=== PATIENT | male | born 1940 | race Caucasian/White ===

== ENCOUNTER 2021-07-09 12:59 | Outpatient (CLI) | payer MEDICARE, SELFPAY ==
--- NOTE | ~2021-07-09 | CT_ITS ---
EXAMINATION: CT abdomen pelvis w con DATE: 07/09/2021 13:42 INDICATION: Unspecified abdominal pain. TECHNIQUE: Computed tomography (CT) of the abdomen and pelvis was performed with 100 mL Omnipaque-350 intravenous contrast. Automated exposure control and iterative reconstruction technique were employe d. The dose-length product was 542.22 mGy-cm. COMPARISON: 09/02/2013 FINDINGS: Lung bases are clear. Moderate-sized sliding-type hiatal hernia. Heart size is normal. No pericardial effusion. Postoperative change of prior median sternotomy and coronary artery bypass grafting. Dual lead pacemaker/AICD seen with leads leading tips at the right atrial appendage and at the apex of the right ventricle. Cholecystectomy clips the gallbladder fossa. Liver, spleen, pancreas and bilateral adrenal glands are normal. A few bilateral subcentimeter low-attenuation renal cysts. There is mild w all thickening and mild surrounding inflammatory stranding at the sigmoid colon where there is a larg e collection of stool measuring up to 7.5 cm in maximal diameter consistent with likely constipation and associated stercoral colitis. There are few scattered colonic diverticula predominantly in the di stal sigmoid colon without focal associated inflammatory stranding to suggest diverticulitis. Small b owel and appendix are normal. No small bowel dilation to suggest obstruction. Marked prostatomegaly m easuring 7.9 x 6.1 cm in maximal diameter. Bladder is normal. No free intraperitoneal gas or fluid. N o pathologically enlarged abdominal or pelvic lymphadenopathy. The inferior aspect of the scrotum is not visualized however there appears to be an absent right spermatic cord suggesting either prior orc hiectomy or nondistended and atrophic right testis which is not identified. Mild thoracolumbar dextro scoliosis with moderate spondylosis. Mild right and mild to moderate left hip osteoarthritis with sub articular cystic change at the superolateral femoral head neck junctions. IMPRESSION: 1. Likely stercoral colitis with mild wall thickening and mild inflammatory stranding at the sigmoid colon surrounding a 7.5 cm diameter ball of stool correlate clinically for constipation. 2. Moderate-sized sliding-type hiatal hernia. 3. Marked prostatomegaly measuring 7.9 x 6.1 cm. 4. Absent right spermatic cord suggesting either prior right orchiectomy or undescended right testis which is not identified. Correlate with clinical history. Reviewed, dictated and finalized at location A. N INTELLIGENCE IMPRESSION: 1. Likely stercoral colitis with mild wall thickening and mild inflammatory str anding at the sigmoid colon surrounding a 7.5 cm diameter ball of stool correla te clinically for constipation. 2. Moderate-sized sliding-type hiatal hernia. 3. Marked prostatomegaly measuring 7.9 x 6.1 cm. 4. Absent right spermatic cord suggesting either prior right orchiectomy or und escended right testis which is not identified. Correlate with clinical history.
[2021-07-09 13:31] LABS: Estimated Glomerular Filt Rate 53
== END 2021-07-09 13:00 | disposition home or self-care (01) ==
LOC: ANHIMG 13:06
PROVIDERS: PCP Family Medicine; Visit Provider Physician Assistant
DX: R10.9 Unspecified abdominal pain (principal); K44.9 Diaphragmatic hernia without obstruction or gangrene
CPT/HCPCS: 74177; Q9967

== ENCOUNTER 2021-07-09 15:00 | Emergency (ER) | payer MEDICARE, SELFPAY ==
[2021-07-09 15:04] VITALS: BP 150/76; PULSE 63; RESP 18; TEMP 36.1; O2SAT 100
[2021-07-09 17:14] VITALS: BP 132/63; PULSE 60; RESP 18; O2SAT 100
--- NOTE | 2021-07-09 18:29 | ED.GENADULT ---
HPI - General Adult General Chief complaint: Abdominal Pain Stated complaint: colon impaction Time Seen by Provider: 07/09/21 16:53 Source: patient and RN notes reviewed Mode of arrival: ambulatory Limitations: no limitations History of Present Illness HPI narrative: 80-year-old male with history of constipation presents emerged department for evaluation of acute constipation that started approximately 2 days ago. Patient did have follow-up with his primary care physician and did have a CT scan. Related Data Home Medications Medication Instructions Recorded Confirmed aspirin 81 mg tablet,delayed 81 mg PO DAILY 05/03/19 07/12/21 release meclizine 25 mg tablet 25 mg PO .PRN tablet 05/03/19 07/12/21 njzynair-ojz-ssglv acid 0.4 1 tablet PO DAILY 05/03/19 07/12/21 mg-lycopene 300 mcg-lutein 250 mcg tablet sildenafil 100 mg tablet 100 mg PO DAILY PRN 05/03/19 07/12/21 Allergies Allergy/AdvReac Type Severity Reaction Status Date / Time No Known Allergies Allergy Mild Verified 07/12/21 09:04 Review of Systems Review of Systems: CONSTITUTIONAL: Denies fever, chills, or sweats. EYES: Denies visual changes, redness, or discharge. ENT: Denies rhinorrhea, congestion, sore throat, or otalgia. CARDIOVASCULAR: Denies chest pain, palpitations, or edema. RESPIRATORY: Denies cough or dyspnea. GASTROINTESTINAL: Does report some constipation. Patient has been passing some balls of stool but no significant bowel movement in approximately 2 days. Patient states he does have intermittent lower abdominal cramping. GENITOURINARY: Denies dysuria or hematuria. SKIN: Denies rash or itching. All systems reviewed & are unremarkable except as noted in HPI and below [facility] Past Medical History Medical History (Updated 07/12/21 @ 14:30 by Deo Yu MD) Cardiac pacemaker (~2009) Presence of combination internal cardiac defibrillator (ICD) and pacemaker (~10/2017) Surgical History Surgical History History of cholecystectomy (~2002) History of thyroidectomy (~1975) History of tonsillectomy (~194) Hx of CABG (~1999) Family History Family History Father Family history of cardiovascular disease Acute myocardial infarction Cerebrovascular accident Malignant neoplasm of prostate Mother Cerebrovascular accident, Onset Age: 87 Family history of Alzheimer's disease, Onset Age: 87 Acute myocardial infarction Family history of malignant neoplasm of breast Family history of dementia Social History Social History (Reviewed 07/12/21 @ 09:05 by Amalia Santana [facility]) Alcohol intake: current Exam Narrative: APPEARANCE: Well appearing, no pain, no distress, well-nourished. HEAD: normocephalic, atraumatic. EYES: PERRLA/EOMI, conjunctivae clear. RESPIRATORY: Airway patent, respirations nonlabored. Clear to auscultation bilaterally, no rales, rhonchi, wheezing. CARDIOVASCULAR: Regular rate and rhythm without murmurs rubs or gallops. ABDOMINAL: Soft, nontender, nondistended, normal bowel sounds. No palpable stool ball on rectal exam MUSCULOSKELETAL: Moves all extremities. Strength/ROM intact, No edema, No calf tenderness. NEURO: Alert. Cranial nerves II through XII intact. Good gait. Good coordination SKIN: Warm, dry. Normal Color Course Course Emergency Course: Patient tolerated the digital rectal exam. Unfortunately there was no stool within reach to help for digital disimpaction. Patient was able to hold the soapsuds enema x2 but has not yet had any significant results. I had a lengthy discussion with the patient regarding admission versus going home to try additional methods. Patient strongly prefers to go home and attempt MiraLAX. Patient was advised to try multiple doses of MiraLAX along with increased water. Patient was also educated on reasons to return to the emergency room. All questions concerns were add
== END 2021-07-09 20:15 | disposition home or self-care (01) ==
PROVIDERS: Emergency Provider Emergency Medicine; PCP Family Medicine
DX: K59.00 Constipation, unspecified (principal); I25.10 Atherosclerotic heart disease of native coronary artery without angina pectoris; Z79.82 Long term (current) use of aspirin; Z95.810 Presence of automatic (implantable) cardiac defibrillator; E89.0 Postprocedural hypothyroidism; Z95.1 Presence of aortocoronary bypass graft; K44.9 Diaphragmatic hernia without obstruction or gangrene; N40.0 Benign prostatic hyperplasia without lower urinary tract symptoms
CPT/HCPCS: 74177; 99282; Q9967

== ENCOUNTER 2021-07-13 10:19 | Inpatient (IN) | payer MEDICARE, SELFPAY ==
--- NOTE | ~2021-07-13 | XR_ITS ---
XR abdomen/kub 1V 07/16/2021 08:15 Indication: Constipation. Fecal impaction. Procedure: KUB Comparison: CT abdomen dated 07/13/2021 Findings: Gas pattern nonobstructive. There is reduced fecal retention in the colon compared with CT allowing for differences of technique. Status post cholecystectomy. There is dextroscoliosis at the t horacolumbar junction. No acute osseous abnormality. No abnormal calcifications. Impression: 1: Nonobstructive bowel gas pattern. Reviewed, dictated and finalized at location D. ENT RELATIONS COORDINATOR Impression: 1: Nonobstructive bowel gas pattern.
--- NOTE | ~2021-07-13 | CT_ITS ---
EXAMINATION: CT abdomen pelvis w con DATE: 07/13/2021 12:23 INDICATION: Low abdominal pain. Fecal impaction. TECHNIQUE: Computed tomography (CT) of the abdomen and pelvis was performed with 100 mL Omnipaque 350 intravenous contrast. Automated exposure control and iterative reconstruction technique were employe d. The dose-length product was 450.43 mGy-cm. COMPARISON: CT abdomen and pelvis 07/09/2021 FINDINGS: The visualized portions of the lung bases demonstrate mild atelectasis. No pleural effusion . The heart size is normal. There are coronary artery calcifications. There are changes of coronary a rtery bypass grafting. No pericardial effusion. There are pacer wires in right atrium and right ventr icle. There is a moderate-sized sliding hiatal hernia. The liver demonstrates focal steatosis adjacen t to ligamentum teres. The spleen, pancreas, adrenal glands are normal. There are cysts in the kidney s measuring up to 7 mm on the right. The prostate is severely enlarged. The sigmoid colon is focally dilated to 7.8 cm and stool-filled with wall thickening and surrounding fat stranding. The appendix i s normal. There are no pathologically enlarged lymph nodes. There is no free intraperitoneal fluid. R ight spermatic cord is absent, which may be secondary to surgical change or an undescended testis, wh ich is not identified. There is severe lumbar spondylosis. Thoracolumbar dextroscoliosis is noted. Th ere is a nonaggressive lytic lesion with sclerotic margin in right ilium, likely benign. IMPRESSION: 1. Persistent stool impaction of the sigmoid colon with stable focal dilatation and worsened inflamma tion. 2. Moderate-sized sliding hiatal hernia. Reviewed, dictated and finalized at location A. RUCTIONAL SERVICES SPECIALIST IMPRESSION: 1. Persistent stool impaction of the sigmoid colon with stable focal dilatation and worsened inflammation. 2. Moderate-sized sliding hiatal hernia.
[2021-07-13 10:28] VITALS: BP 120/72; PULSE 101; RESP 14; TEMP 35.9; O2SAT 99
[2021-07-13 11:17] LABS: Alanine Aminotransferase 30 U/L (4-50); Albumin Level 4.9 g/dL (3.5-5.1); Alkaline Phosphatase 180 U/L (38-126); Anion Gap 13 mmol/L (8-16); Aspartate Amino Transferase 47 U/L (17-59); Bilirubin,Total 1.3 mg/dL (0.2-1.3); Blood Urea Nitrogen 38 mg/dL (9-20); Calcium 10.5 mg/dL (8.4-10.2); Carbon Dioxide 29 mmol/L (22-30); Chloride 95 mmol/L (98-107); Estimated CRCL calculation 33 ml/min; Estimated Glomerular Filt Rate 42; Glucose 126 mg/dL (65-110); Potassium 4.3 mmol/L (3.4-5.0); Sodium 137 mmol/L (137-145)
[2021-07-13 11:18] LABS: Basophils Absolute Auto 0.1 K/mm3 (0.0-0.1); Basophils Percent Auto 0.4 % (0.2-1.2); Eosinophils Percent Auto 0.1 % (0-4.4); Hematocrit 49.7 % (42.0-52.0); Hemoglobin 17.1 g/dL (14.0-18.0); Immature Granulocyte Absolute 0.08 K/mm3 (0.00-0.031); Immature Granulocyte Percent A 0.5 % (0-0.5); Lymphocytes Absolute Auto 1.64 K/mm3 (0.9-3.2); Mean Corpuscular HGB Conc 34.4 g/dl (32-36); Mean Corpuscular Hemoglobin 30.9 pg (26-34); Mean Corpuscular Volume 89.9 fl (80-100); Mean Platelet Volume 10.5 fl (7.4-10.4); Monocytes Absolute Auto 1.3 K/mm3 (0.1-0.6); Monocytes Percent Auto 7.6 % (2.6-8.5); Neutrophils Absolute Auto 13.3 K/mm3 (1.3-6.7); Neutrophils Percent Auto 81.4 % (45.5-73.1); Platelet Count Result 279 k/mm3 (150-375); Red Blood Count 5.53 M/mm3 (4.6-6.20); Red Cell Distribution Width 12.8 % (11.5-14.5); White Blood Count 16.4 K/mm3 (4.5-10.0)
--- NOTE | 2021-07-13 11:22 | ED.ABDPAIN ---
HPI - Abdominal Pain General Chief Complaint: Abdominal Pain Stated Complaint: impaction Time Seen by Provider: 07/13/21 10:51 Source: patient, RN notes reviewed and old records reviewed Limitations: no limitations History of Present Illness HPI narrative: 80-year-old male presenting to the emergency department for evaluation of fecal impaction and constipation. Patient began developing some symptoms of constipation approximately 1 week ago on Monday. Patient denies any change in home medications at that time. Patient did have follow-up with his primary care physician and was initially started on MiraLAX. Patient symptoms persisted and he had follow-up in and a CT was ordered which showed some fecal impaction. Patient was then instructed present to the emergency department the first time on the . At that time patient was willing to attempt further conservative measures such as clear liquid diet and MiraLAX to help initiate a bowel movement. Patient had no fecal stool ball on digital rectal exam. Patient had no significant results at home from the miralax after DC from the ED and once again did have follow-up with his primary care physician, case was discussed with Dr. Cantrell. Patient was instructed to continue a mineral oil Fleet, MiraLAX and milk of magnesia. Patient attempted these all the yesterday and then tried a suppository last night. None of these have induced bowel movements. Patient does complain of lower abdominal cramping. Patient does have some associated nausea. Patient does state he has lost about 10 pounds of weight in the last 10 days. Patient has not had anything to eat but a few sips of water earlier this morning. Related Data Home Medications Medication Instructions Recorded Confirmed aspirin 81 mg tablet,delayed 81 mg PO DAILY 05/03/19 07/12/21 release meclizine 25 mg tablet 25 mg PO .PRN tablet 05/03/19 07/12/21 dojnhpwo-ngw-hgenf acid 0.4 1 tablet PO DAILY 05/03/19 07/12/21 mg-lycopene 300 mcg-lutein 250 mcg tablet sildenafil 100 mg tablet 100 mg PO DAILY PRN 05/03/19 07/12/21 Allergies Allergy/AdvReac Type Severity Reaction Status Date / Time No Known Allergies Allergy Mild Verified 07/12/21 09:04 Review of Systems Review of Systems: CONSTITUTIONAL: Denies fever, chills, or sweats. EYES: Denies visual changes, redness, or discharge. ENT: Denies rhinorrhea, congestion, sore throat, or otalgia. CARDIOVASCULAR: Denies chest pain, palpitations, or edema. RESPIRATORY: Denies cough or dyspnea. GASTROINTESTINAL: Lower abdominal cramping with associated nausea, GENITOURINARY: Denies dysuria or hematuria. SKIN: Denies rash or itching. MUSCULOSKELETAL: Denies back pain, joint pain, or myalgia. NEUROLOGIC: Denies headache, numbness, or weakness. PSYCHIATRIC: Denies anxiety or depression. [facility] Past Medical History Medical History (Updated 07/13/21 @ 13:01 by Deo Yu MD) Cardiac pacemaker (~2009) Presence of combination internal cardiac defibrillator (ICD) and pacemaker (~10/2017) Surgical History Surgical History History of cholecystectomy (~2002) History of thyroidectomy (~1975) History of tonsillectomy (~194) Hx of CABG (~1999) Family History Family History Father Family history of cardiovascular disease Acute myocardial infarction Cerebrovascular accident Malignant neoplasm of prostate Mother Cerebrovascular accident, Onset Age: 87 Family history of Alzheimer's disease, Onset Age: 87 Acute myocardial infarction Family history of malignant neoplasm of breast Family history of dementia Social History Social History Smoking packs per day: 0.5 Smoking cigarettes per day: 10.0 Years smoked: 4 Smoking pack-years: 2.00 Smoking status: Former smoker Alcohol intake: current Spiritual c
[2021-07-13] MEDS: fentaNYL CITRATE INJ (*CRX) 100 MCG/2 ML VIAL 50 MCG IV PUSH (12:07)
--- NOTE | 2021-07-13 12:13 | PC.NURSE ---
PATIENT MEDICATED AND CT SCAN AWARE
--- NOTE | 2021-07-13 13:24 | PC.NURSE ---
Dr here to assess patient
[2021-07-13 13:25] LABS: SARS-CoV-2 RNA PCR Negative
--- NOTE | 2021-07-13 14:14 | WPDGICN ---
Assessment and Plan Assessment and plan (1) Constipation: Qualifiers: Constipation type: unspecified constipation type Qualified Code(s): K59.00 - Constipation, unspecified Code(s): K59.00 - Constipation, unspecified Status: Acute Assessment and Plan: Patient with constipation with now with fecal impaction. Plan is for liquid diet. We will try some soapsuds enemas and perhaps mineral oil retention enemas intermittently to see if we can break up this fecal impaction. Long-term use laxatives will be of benefit. (2) Fecal impaction of colon: Code(s): K56.41 - Fecal impaction Status: Acute Assessment and Plan: CT scan suggest fecal impaction both in the ER several days ago and again today. We will try intermittent soapsuds enemas and perhaps mineral oil enemas along with to collect suppositories hopefully this will help reduce some results. (3) Stercoral colitis: Code(s): K52.89 - Other specified noninfective gastroenteritis and colitis Status: Acute GI Consult Note Consult date/time: 07/13/21 14:14 HPI: Reinaldo Joseph is a 80 year old male I have been asked to consult because of fecal impaction. Patient reports began to have difficulties with bowel movement a week ago. He states at this point he has not had a bowel movement for 1 week. He presented the ER several days ago. CT scan revealed fecal impaction. Patient has received several enemas and is started on MiraLax with no change in symptoms. Apparently tried mineral oil enema recently with no change in symptoms. He denies any prior episodes of fecal obtained packed [place] or obstruction. He denies any bleeding. He states he has had minimal intake aside from liquids and soups over the last several days. His family history is noncontributory. Patient's past history is significant for cardiac pacemaker and defibrillator. He has previously had a cholecystectomy. Review of Systems Review of Systems: All systems reviewed & are unremarkable except as noted in HPI and below [facility] Past Medical History Medical History (Updated 07/13/21 @ 13:01 by Deo Yu MD) Cardiac pacemaker (~2009) Presence of combination internal cardiac defibrillator (ICD) and pacemaker (~10/2017) Surgical History Surgical History History of cholecystectomy (~2002) History of thyroidectomy (~1975) History of tonsillectomy (~194) Hx of CABG (~1999) Family History Family History Father Family history of cardiovascular disease Acute myocardial infarction Cerebrovascular accident Malignant neoplasm of prostate Mother Cerebrovascular accident, Onset Age: 87 Family history of Alzheimer's disease, Onset Age: 87 Acute myocardial infarction Family history of malignant neoplasm of breast Family history of dementia Social History Social History Alcohol intake: current Meds Home Medications and Allergies Home Medications Medication Instructions Recorded Confirmed Type aspirin 81 mg tablet,delayed 81 mg PO DAILY 05/03/19 07/12/21 History release meclizine 25 mg tablet 25 mg PO .PRN tablet 05/03/19 07/12/21 History bodfkabv-rdh-aoozk acid 0.4 1 tablet PO DAILY 05/03/19 07/12/21 History mg-lycopene 300 mcg-lutein 250 mcg tablet sildenafil 100 mg tablet 100 mg PO DAILY PRN 05/03/19 07/12/21 History atorvastatin 40 mg tablet See Rx Instructions .ROUTE 11/27/20 07/12/21 Rx .COMPLEX #90 tablet omeprazole 20 mg capsule,delayed See Rx Instructions .ROUTE 12/01/20 07/12/21 Rx release .COMPLEX #90 cap hydrochlorothiazide 25 mg tablet See Rx Instructions .ROUTE 12/11/20 07/12/21 Rx .COMPLEX #90 tablet metoprolol succinate 50 mg See Rx Instructions .ROUTE 01/11/21 07/12/21 Rx tablet,extended release 24 hr .COMPLEX #90 tablet adina
[2021-07-13] MEDS: HYDROmorphone HCL INJ (*CRX) 1 MG/ML SYR 0.5 MG IV PUSH (14:58)
[2021-07-13] MEDS: BISACODYL 5 MG TABLET EC PO (15:00)
[2021-07-13] MEDS: SODIUM CHLORIDE 0.9% IV 1,000 ML 150 ML IV CONT (15:00)
[2021-07-13 17:59] VITALS: BP 121/78; RESP 16; O2SAT 96
--- NOTE | 2021-07-13 18:00 | PM.IMHP ---
H&P: HPI History of Present Illness Date/Time: 07/13/21 18:00 Chief Complaint: Abdominal pain and constipation. Narrative: This is a pleasant 80-year-old male with history of diverticulitis, gastroesophageal reflux disease, coronary artery disease, paroxysmal atrial fibrillation, hypertension, sleep apnea, and benign prostatic hyperplasia presented to the emergency department from home for evaluation of abdominal pain and constipation. Nearly 1 week ago he developed abdominal bloating and cramping with the inability to have a bowel movement. Maybe 2 weeks prior to that he noticed that his stools were much smaller and harder than usual though he did not paid much attention. He has tried a multitude of things to have a bowel movement including MiraLax, milk of magnesia, mineral oil, Dulcolax suppositories, and Fleet enema as without much success. In fact he was seen emergency department on 07/09/[address] of the abdomen pelvis showed findings of stercoral colitis surrounding a 7.5 cm diameter ball of stool at the sigmoid colon. He was unable to be manually disimpacted as the stool could not be reached. He was given an enema at that time and only produced a small amount of brown liquid stool. Unfortunately he continues to have significant bloating and pain without a bowel movement. It is now to the point where he does not want to eat or drink anything as he thinks is going to make things worse. He is being admitted for further care. Dr. Cantrell has seen him and recommends trying soapsuds enemas and mineral oil retention enema as to see if we can break up the fecal impaction. Patient reports a similar episode though not nearly as severe several years ago when he had diverticulitis. It should also be mentioned that he had severe prostatomegaly on imaging today. He states he has been urinating as normal. He has not had pelvic pain, fever, chills, or sweats. Review of Systems Review of Systems: Twelve systems were reviewed. No recent cold or flu symptoms. He denies sick contacts. He has had some nausea which he believes is due to the bloating. Cramping does improve somewhat when passing gas or belching though that does not occur very frequently. No chest pain or shortness of breath. No cough. No dysuria or hematuria. Except as documented, all other systems were reviewed and are negative. PMFSH Past Medical History Medical History (Updated 07/13/21 @ 23:11 by Beryl Morrison PA-C) Benign prostatic hyperplasia Coronary artery disease Diverticulitis Essential (primary) hypertension Gastroesophageal reflux disease Mixed hyperlipidemia Obstructive sleep apnea Paroxysmal atrial fibrillation Surgical History Surgical History (Updated 07/13/21 @ 23:08 by Beryl Morrison PA-C) Cardiac pacemaker (2009) History of cholecystectomy (2002) History of coronary artery bypass graft (1999) History of thyroidectomy (1975) History of tonsillectomy (1947) Presence of combination internal cardiac defibrillator (ICD) and pacemaker (10/2017) Family History Family History Father Family history of cardiovascular disease Acute myocardial infarction Cerebrovascular accident Malignant neoplasm of prostate Mother Cerebrovascular accident, Onset Age: 87 Family history of Alzheimer's disease, Onset Age: 87 Acute myocardial infarction Family history of malignant neoplasm of breast Family history of dementia Social History Social History (Updated 07/13/21 @ 23:09 by Beryl Morrison PA-C) Social History: Surrogate decision maker: Nga Joseph, spouse. Code status: Full code. Smoking packs per day: 0.5 Smoking cigarettes per day: 10.0 Years smoked: 4 Smoking pack-years: 2.00 Smoking status: Former smoker Alcohol intake: current Alcohol use details: Consumes alcohol socially and in moderation. Substance use: never Additional living arrangements comments: Lives in [facility]
--- NOTE | 2021-07-13 18:39 | ADMGEN ---
This patient, Reinaldo Joseph, was admitted to Medical Room 251-01. Patient/family oriented to hospital policies and general routines including ID bracelet, bed and alarms, visiting hours, pain management, procedures, bathroom and other care routines, personal items, smoking policy, room service/diet, and visiting hours. Information on how to activate the Rapid Response Team has been discussed. Patient/Family are encouraged to report perceived risks to care and to ask questions if they do not understand what they are told or what they should do.
[2021-07-13 18:44] VITALS: BP 135/80; PULSE 88; RESP 16; TEMP 36.4; O2SAT 100; BMI 24.9
[2021-07-13 19:31] VITALS: BP 107/65; PULSE 79; RESP 16; TEMP 36.9; O2SAT 99
[2021-07-13 20:00] VITALS: PULSE 79; RESP 16; O2SAT 99
[2021-07-13 23:14] VITALS: PULSE 79; O2SAT 93
[2021-07-14] MEDS: SODIUM CHLORIDE 0.9% IV 1,000 ML 75 ML IV CONT (00:09)
[2021-07-14 04:27] VITALS: BP 132/71; PULSE 81; RESP 17; TEMP 37.2; O2SAT 97
[2021-07-14 05:57] LABS: Hematocrit 43.4 % (42.0-52.0); Hemoglobin 14.5 g/dL (14.0-18.0); Mean Corpuscular HGB Conc 33.4 g/dl (32-36); Mean Corpuscular Hemoglobin 30.4 pg (26-34); Platelet Count Result 223 k/mm3 (150-375); Red Blood Count 4.77 M/mm3 (4.6-6.20); Red Cell Distribution Width 12.8 % (11.5-14.5); White Blood Count 10.2 K/mm3 (4.5-10.0)
[2021-07-14 06:34] LABS: Anion Gap 10 mmol/L (8-16); Blood Urea Nitrogen 33 mg/dL (9-20); CRP 18.2 mg/dL (<1.0); Calcium 9.4 mg/dL (8.4-10.2); Carbon Dioxide 28 mmol/L (22-30); Chloride 100 mmol/L (98-107); Estimated CRCL calculation 40 ml/min; Estimated Glomerular Filt Rate 53; Glucose 93 mg/dL (65-110); Magnesium 2.5 mg/dL (1.6-2.3); Potassium 4.1 mmol/L (3.4-5.0); Sodium 138 mmol/L (137-145)
[2021-07-14] MEDS: HYDROmorphone HCL INJ (*CRX) 1 MG/ML SYR 0.5 MG IV PUSH (06:44)
--- NOTE | 2021-07-14 07:47 | WPDGIPROGNO ---
Progress Note: A&P Assessment and Plan (1) Constipation: Qualifiers: Constipation type: unspecified constipation type Qualified Code(s): K59.00 - Constipation, unspecified Code(s): K59.00 - Constipation, unspecified Status: Acute Assessment and Plan: Patient with constipation now leading to fecal impaction. After discharge a routine bowel regime would be prudent. (2) Fecal impaction of colon: Code(s): K56.41 - Fecal impaction Status: Acute Assessment and Plan: Patient with large fecal impaction. Plan to continue intermittent soapsuds and mineral oil enemas today. MiraLax daily is also advised. (3) Stercoral colitis: Code(s): K52.89 - Other specified noninfective gastroenteritis and colitis Status: Acute Assessment and Plan: Some inflammation around the stercal fecal impaction evident on CT scan. This likely accounts for his abdominal discomfort. Subjective Date/time seen: 07/14/21 07:47 Patient alert this morning. Remains somewhat anxious. No significant bowel movement after enema E yesterday. Complains of modest lower abdominal discomfort. Review of Systems Review of Systems: All systems reviewed & are unremarkable except as noted in HPI and below Exam Narrative: Physical exam reveals patient be alert. Vital signs stable. HEENT exam reveals no icterus. Lungs are clear to auscultation and percussion. Heart is without murmur or extra sounds. Abdomen bowel sounds are present , Bowel sounds appear active.. soft modest diffuse tenderness primarily low abdomen. Objective Data Vital Signs Vital Signs: Vital Signs - 24 hr 07/13/21 10:28 07/13/21 17:59 07/13/21 18:44 Temperature 96.7 F L 97.5 F L Pulse Rate 101 H 88 Respiratory Rate 14 16 16 Blood Pressure 120/72 121/78 135/80 Pulse Oximetry 99 96 100 07/13/21 19:31 07/13/21 20:00 07/13/21 23:14 Temperature 98.5 F Pulse Rate 79 79 79 Respiratory Rate 16 16 Blood Pressure 107/65 Pulse Oximetry 99 99 93 07/14/21 04:27 Temperature 98.9 F Pulse Rate 81 Respiratory Rate 17 Blood Pressure 132/71 Pulse Oximetry 97 Intake/Output Intake/Output: Intake & Output 07/11/21 07/12/21 07/13/21 07/14/21 23:59 23:59 23:59 23:59 Intake Total 1000 400 Output Total 400 Balance 1000 0 Meds/Results Medications: Active Medications Generic Name Dose Route Start Last Admin Trade Name Derek PRN Reason Stop Dose Admin Aspirin 81 mg 07/14/21 09:00 Aspirin 81 Mg Enteric Tablet PO DAILY [facility] Atorvastatin Calcium 40 mg 07/14/21 09:00 Atorvastatin 40 Mg Tablet BY MOUTH DAILY [facility] Bisacodyl 5 mg 07/14/21 09:00 Bisacodyl 5 Mg Tablet Ec PO QAM [facility] Piperacillin Sod/Tazobactam Sod 2.25 gm in 50 mls @ 100 mls/hr 07/14/21 00:00 07/14/21 06:00 Zosyn 2.25 Gm/D5w 50 Ml IVPB Infused Q6H [facility] Infusion Sodium Chloride 1,000 mls @ 75 mls/hr 07/13/21 23:18 07/14/21 00:09 Normal Saline Iv IV CONT 07/14/21 12:37 75 mls/hr .[id number] ONE Administration Metoprolol Succinate 50 mg 07/14/21 09:00 Metoprolol Succinate Ext Rel 50 Mg Tabcr BY MOUTH DAILY [facility] Multivitamins/Minerals 1 tab 07/14/21 09:00 Multivitamins /C Lutein (Centrum Silver) Tablet *Bkc PO DAILY [facility] Pantoprazole Sodium 40 mg 07/14/21 09:00 Pantoprazole 40 Mg Tablet PO QAM [facility] Polyethylene Glycol 17 gm 07/14/21 09:00 Polyethylene Glycol 3350 17 [facility] [place] Results: ITS Impressions Abdomen/Pelvis CT 07/13/21 12:27 IMPRESSION: 1. Persistent stool impaction of the sigmoid colon with stable focal dilatation and worsened inflammation. 2. Moderate-sized sliding hiatal hernia. Labs Labs: Laboratory Results - last 24 hr 07/13/21 07/13/21 07/13/21 10:33 10:33 12:42 WBC 16.4 H RBC 5.53 Hgb 17.1 Hct 49.7 MCV 89.9 MCH 30.9 MCHC 34.4 RDW 12.8 Plt Count
[2021-07-14 08:00] VITALS: PULSE 81
[2021-07-14] MEDS: BISACODYL 5 MG TABLET EC PO (08:00)
[2021-07-14] MEDS: ATORVASTATIN 40 MG TABLET BY MOUTH (08:00)
[2021-07-14] MEDS: polyethylene glycoL 3350 17 GM POWD.PACK PO (08:00)
[2021-07-14] MEDS: ASPIRIN 81 MG ENTERIC TABLET PO (08:00)
[2021-07-14] MEDS: MULTIVITAMINS /C LUTEIN (CENTRUM SILVER) TABLET *BKC 1 TAB PO (08:00)
[2021-07-14] MEDS: PANTOPRAZOLE 40 MG TABLET PO (08:00)
[2021-07-14] MEDS: METOPROLOL SUCCINATE EXT REL 50 MG TABCR BY MOUTH (08:00)
[2021-07-14 14:00] VITALS: BP 128/70; PULSE 80; RESP 16; TEMP 36.9; O2SAT 98
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
--- NOTE | 2021-07-14 20:05 | PCRCNOTE ---
pt. refused CPAP due to hospitals masks, offered different sizes and pt. wants to wait home to use their own
[2021-07-14 22:00] VITALS: BP 123/64; PULSE 67; RESP 18; TEMP 36.9; O2SAT 96
[2021-07-15] VITALS (8 sets, daily range): BP systolic 114–149; BP diastolic 61–70; PULSE 57–75; RESP 18–20; TEMP 35.8–36.3; O2SAT 97–100
[2021-07-15 06:50] LABS: Hemoglobin 13.8 g/dL (14.0-18.0); Mean Corpuscular HGB Conc 33.7 g/dl (32-36); Mean Corpuscular Hemoglobin 31.2 pg (26-34); Mean Corpuscular Volume 92.8 fl (80-100); Mean Platelet Volume 9.8 fl (7.4-10.4); Platelet Count Result 198 k/mm3 (150-375); Red Blood Count 4.42 M/mm3 (4.6-6.20); Red Cell Distribution Width 12.9 % (11.5-14.5); White Blood Count 8.4 K/mm3 (4.5-10.0)
[2021-07-15 07:14] LABS: Anion Gap 5 mmol/L (8-16); Blood Urea Nitrogen 24 mg/dL (9-20); Calcium 9.8 mg/dL (8.4-10.2); Carbon Dioxide 28 mmol/L (22-30); Chloride 102 mmol/L (98-107); Estimated CRCL calculation 40 ml/min; Estimated Glomerular Filt Rate 53; Glucose 109 mg/dL (65-110); Sodium 135 mmol/L (137-145)
[2021-07-15 07:24] LABS: CRP 15.4 mg/dL (<1.0)
[2021-07-15] MEDS: ATORVASTATIN 40 MG TABLET BY MOUTH (08:57)
[2021-07-15] MEDS: PANTOPRAZOLE 40 MG TABLET PO (08:57)
[2021-07-15] MEDS: MULTIVITAMINS /C LUTEIN (CENTRUM SILVER) TABLET *BKC 1 TAB PO (08:57)
[2021-07-15] MEDS: polyethylene glycoL 3350 17 GM POWD.PACK PO (08:57)
[2021-07-15] MEDS: BISACODYL 5 MG TABLET EC PO (08:57)
[2021-07-15] MEDS: ASPIRIN 81 MG ENTERIC TABLET PO (08:57)
[2021-07-15] MEDS: METOPROLOL SUCCINATE EXT REL 50 MG TABCR BY MOUTH (08:58)
[2021-07-15] MEDS: MAGNESIUM CITRATE 300 ML BTL PO (08:58)
--- NOTE | 2021-07-15 09:05 | WPDGIPROGNO ---
Progress Note: A&P Assessment and Plan (1) Constipation: Qualifiers: Constipation type: unspecified constipation type Qualified Code(s): K59.00 - Constipation, unspecified Code(s): K59.00 - Constipation, unspecified Status: Acute Assessment and Plan: Will continue MiraLax daily. Advance diet. (2) Fecal impaction of colon: Code(s): K56.41 - Fecal impaction Status: Acute Assessment and Plan: Patient admitted with fecal impaction. I am somewhat uncertain whether this is cleared. Will give him another soapsuds enema today. Bottle of magnesium citrate. Advance diet to a regular diet hopefully increase activity. Discharge if pain free and tolerating diet. He should continue laxatives routinely after discharge. Subjective Date/time seen: 07/15/21 09:05 Patient alert and comfortable this morning. States his abdominal pain is resolved. Only on liquid diet however. He reports a modest a bowel movement after laxatives. It is difficult to determine the exact amount. Exam Narrative: Physical exam patient is alert comfortable at rest. HEENT exam reveals no icterus. Lungs are clear. Heart without murmur. Abdomen bowel sounds present soft nontender. Still feels somewhat firm in the low abdomen. Objective Data Vital Signs Vital Signs: Vital Signs - 24 hr 07/14/21 14:00 07/14/21 22:00 07/15/21 06:00 Temperature 98.4 F 98.5 F 97.4 F L Pulse Rate 80 67 57 L Respiratory Rate 16 18 20 Blood Pressure 128/70 123/64 149/65 H Pulse Oximetry 98 96 98 07/15/21 08:58 Temperature Pulse Rate 74 Respiratory Rate Blood Pressure Pulse Oximetry Intake/Output Intake/Output: Intake & Output 07/12/21 07/13/21 07/14/21 07/15/21 23:59 23:59 23:59 23:59 Intake Total 1000 3158 600 Output Total 650 Balance 1000 2508 600 Meds/Results Medications: Active Medications Generic Name Dose Route Start Last Admin Trade Name Freq PRN Reason Stop Dose Admin Aspirin 81 mg 07/14/21 09:00 07/15/21 08:57 Aspirin 81 Mg Enteric Tablet PO 81 mg DAILY [facility] Administration Atorvastatin Calcium 40 mg 07/14/21 09:00 07/15/21 08:57 Atorvastatin 40 Mg Tablet BY MOUTH 40 mg DAILY [facility] Administration Bisacodyl 5 mg 07/14/21 09:00 07/15/21 08:57 Bisacodyl 5 Mg Tablet Ec PO 5 mg QAM [facility] Administration Piperacillin Sod/Tazobactam Sod 2.25 gm in 50 mls @ 100 mls/hr 07/14/21 00:00 07/15/21 06:36 Zosyn 2.25 Gm/D5w 50 Ml IVPB Infused Q6H [facility] Infusion Metoprolol Succinate 50 mg 07/14/21 09:00 07/15/21 08:58 Metoprolol Succinate Ext Rel 50 Mg Tabcr BY MOUTH 50 mg DAILY [facility] Administration Multivitamins/Minerals 1 tab 07/14/21 09:00 07/15/21 08:57 Multivitamins /C Lutein (Centrum Silver) Tablet *Bkc PO 1 tab DAILY [facility] Administration Pantoprazole Sodium 40 mg 07/14/21 09:00 07/15/21 08:57 Pantoprazole 40 Mg Tablet PO 40 mg QAM [facility] Administration Polyethylene Glycol 17 gm 07/14/21 09:00 07/15/21 08:57 Polyethylene Glycol 3350 17 Gm Powd.Pack PO 17 gm QAM [facility] Administration Radiology Results: ITS Impressions Abdomen/Pelvis CT 07/13/21 12:27 IMPRESSION: 1. Persistent stool impaction of the sigmoid colon with stable focal dilatation and worsened inflammation. 2. Moderate-sized sliding hiatal hernia. Labs Labs: Laboratory Results - last 24 hr 07/15/21 07/15/21 06:04 06:04 WBC 8.4 RBC 4.42 L Hgb 13.8 L Hct 41.0 L MCV 92.8 MCH 31.2 MCHC 33.7 RDW 12.9 Plt Count 198 MPV 9.8 Sodium 135 L Potassium 4.0 Chloride 102 Carbon Dioxide 28 Anion Gap 5 L BUN 24 H Creatinine 1.30 Estim Creat Clear Calc 40 Estimated GFR 53 L Glucose 109 Calcium 9.8 C-Reactive Protein 15.4 H Amg Follow-up Billing Inpatient Follow-up [id number] [facility] Mod
--- NOTE | 2021-07-15 12:00 | PM.IMPN ---
Progress Note: A&P Assessment and Plan (1) Fecal impaction of colon: Code(s): K56.41 - Fecal impaction Status: Acute Assessment and Plan: CT showed 7.8 cm dilation of the sigmoid colon secondary to stool impaction Appreciate gastroenterology consultation Advance to regular diet He had liquid stools following soapsuds enema and mineral oil retention enema yesterday Soapsuds enema repeated this morning 300 mL magnesium citrate this morning Dulcolax and MiraLax daily Abdominal pain persists. Continue supportive care (2) Constipation: Qualifiers: Constipation type: unspecified constipation type Qualified Code(s): K59.00 - Constipation, unspecified Code(s): K59.00 - Constipation, unspecified Status: Acute Assessment and Plan: Plan is as detailed above. (3) Stercoral colitis: Code(s): K52.89 - Other specified noninfective gastroenteritis and colitis Status: Acute Assessment and Plan: CT showed wall thickening and surrounding fat stranding. No evidence of ischemia or perforation. Continue IV Zosyn White blood cell count has normalized Patient remains afebrile Supportive care. (4) Dehydration: Code(s): E86.0 - Dehydration Status: Acute Assessment and Plan: Secondary to poor oral intake as the patient reported being afraid to eat due to constipation. He was adequately rehydrated with IV fluids IV fluids discontinued as patient is tolerating oral intake Serum creatinine has normalized with rehydration (5) Essential (primary) hypertension: Code(s): I10 - Essential (primary) hypertension Status: Acute Assessment and Plan: Blood pressures were reviewed and have been well controlled. Last BP 149/65 HCTZ on hold in light of dehydration Continue metoprolol succinate (6) Benign prostatic hyperplasia: Code(s): N40.0 - Benign prostatic hyperplasia without lower urinary tract symptoms Status: Acute Assessment and Plan: Prostate severely enlarged on CT. No acute issues with urinary retention Monitor urine output Subjective Date/time seen: 07/15/21 12:00 Interval history: Date of service: 07/14/2021 Reinaldo Joseph is a 80-year-old male with a history of BPH, CAD, hypertension, GERD, ORLY, paroxysmal atrial fibrillation, and fecal impaction who is seen in follow-up for fecal impaction with stercoral colitis. He reports he is still not feeling well today. He has had several liquid stools but has not had any formed bowel movements. He continues to endorse low abdominal pain in which she experiences sharp intermittent episodes of pain lasting 1 minute that he rates as 7/10. He has had approximately 4 episodes similar to this today. He also endorses abdominal fullness, gas, and belching. Denies nausea or vomiting. Tolerating clear liquids. He was just delivered a solid food tray and was about to attempt that. He denies dysuria, hesitancy, urinary retention. No fevers, chills, dizziness, lightheadedness, weakness, shortness of breath, cough. Review of Systems Review of Systems: All systems reviewed & are unremarkable except as noted in HPI and below Exam Narrative: Mr. Joseph is a well-nourished, well-appearing 80-year-old male who is sitting up in bed. He appears comfortable and is in NARD. Neuro: awake, alert and oriented x4, speech clear, no focal neuro deficits noted HEENMT: normocephalic, atraumatic, EOMI, sclerae anicteric Neck: supple, no lymphadenopathy Respiratory: clear to auscultation bilaterally, nonlabored breathing Cardio: regular rate, regular rhythm with S1-S2 Abdomen: nondistended, normoactive bowel sounds, soft, tender to palpation in suprapubic region Extremities: no edema, erythema, or tenderness to palpation, DP pulses 2+ bilaterally Skin: no rashes or lesions, warm and dry Psych: appropriate mood and affect, judgment and insight int
--- NOTE | 2021-07-15 15:19 | PC.NURSE ---
On 07/15/21, the student, [Yuliana Bond], provided care and completed [facility] documentation on this patient. I have reviewed the student's documentation and agree with the findings.
[2021-07-15] MEDS: ACETAMINOPHEN 325 MG TABLET 650 MG PO (15:40)
[2021-07-16 05:06] VITALS: BP 124/71; PULSE 59; RESP 20; TEMP 36; O2SAT 100
[2021-07-16 08:23] VITALS: PULSE 60
[2021-07-16] MEDS: PANTOPRAZOLE 40 MG TABLET PO (08:23)
[2021-07-16] MEDS: ATORVASTATIN 40 MG TABLET BY MOUTH (08:23)
[2021-07-16] MEDS: ASPIRIN 81 MG ENTERIC TABLET PO (08:23)
[2021-07-16] MEDS: polyethylene glycoL 3350 17 GM POWD.PACK PO (08:23)
[2021-07-16] MEDS: MULTIVITAMINS /C LUTEIN (CENTRUM SILVER) TABLET *BKC 1 TAB PO (08:23)
[2021-07-16] MEDS: METOPROLOL SUCCINATE EXT REL 50 MG TABCR BY MOUTH (08:23)
[2021-07-16] MEDS: BISACODYL 5 MG TABLET EC PO (08:24)
--- NOTE | 2021-07-16 08:28 | WPDGIPROGNO ---
Progress Note: A&P Assessment and Plan (1) Constipation: Qualifiers: Constipation type: unspecified constipation type Qualified Code(s): K59.00 - Constipation, unspecified Code(s): K59.00 - Constipation, unspecified Status: Acute Assessment and Plan: Patient with constipation leading to fecal impaction. Would recommend MiraLax be taken on a routine basis initially daily and then subsequently several times a week. Stool softener such as Colace or Metamucil may be beneficial on a daily basis. Discharge today if others agree. (2) Fecal impaction of colon: Code(s): K56.41 - Fecal impaction Status: Acute Assessment and Plan: Patient admitted with fecal impaction and obstruction of the colon from this. Now resolved after multiple enemas laxatives. Would recommend ongoing use of stool softeners in laxatives as needed to prevent recurrence. Discharge today if others agree. Subjective Date/time seen: 07/16/21 08:28 Patient had good response to additional laxatives and enemas. Denies abdominal pain at present. Tolerating diet with no difficulties. Review of Systems Review of Systems: All systems reviewed & are unremarkable except as noted in HPI and below Exam Narrative: Physical exam reveals patient be alert. Vital signs stable. HEENT exam unremarkable. Patient anicteric. Lungs are clear. Heart without murmur. Abdomen bowel sounds present soft nontender with no fullness encounter. Objective Data Vital Signs Vital Signs: Vital Signs - 24 hr 07/15/21 08:58 07/15/21 14:00 07/15/21 14:40 Temperature 97 F L Pulse Rate 74 75 Respiratory Rate 18 Blood Pressure 135/70 Pulse Oximetry 100 07/15/21 20:00 07/15/21 20:35 07/15/21 22:55 Temperature 96.5 F L Pulse Rate 63 63 Respiratory Rate 20 20 Blood Pressure 114/61 Pulse Oximetry 100 100 97 07/16/21 05:06 07/16/21 08:23 Temperature 96.8 F L Pulse Rate 59 L 60 Respiratory Rate 20 Blood Pressure 124/71 Pulse Oximetry 100 Intake/Output Intake/Output: Intake & Output 07/13/21 07/14/21 07/15/21 07/16/21 23:59 23:59 23:59 23:59 Intake Total 1000 3878 2892 490 Output Total 650 Balance 1000 2508 2892 490 Meds/Results Medications: Active Medications Generic Name Dose Route Start Last Admin Trade Name Freq PRN Reason Stop Dose Admin Acetaminophen 650 mg 07/15/21 15:24 07/15/21 15:40 Acetaminophen 325 Mg Tablet PO 650 mg Q4H PRN Administration Mild pain 1-3 Aspirin 81 mg 07/14/21 09:00 07/16/21 08:23 Aspirin 81 Mg Enteric Tablet PO 81 mg DAILY [facility] Administration Atorvastatin Calcium 40 mg 07/14/21 09:00 07/16/21 08:23 Atorvastatin 40 Mg Tablet BY MOUTH 40 mg DAILY [facility] Administration Bisacodyl 5 mg 07/14/21 09:00 07/16/21 08:24 Bisacodyl 5 Mg Tablet Ec PO 5 mg QAM [facility] Administration Piperacillin Sod/Tazobactam Sod 2.25 gm in 50 mls @ 100 mls/hr 07/14/21 00:00 07/16/21 06:26 Zosyn 2.25 Gm/D5w 50 Ml IVPB Infused Q6H [facility] Infusion Metoprolol Succinate 50 mg 07/14/21 09:00 07/16/21 08:23 Metoprolol Succinate Ext Rel 50 Mg Tabcr BY MOUTH 50 mg DAILY [facility] Administration Multivitamins/Minerals 1 tab 07/14/21 09:00 07/16/21 08:23 Multivitamins /C Lutein (Centrum Silver) Tablet *Bkc PO 1 tab DAILY [facility] Administration Pantoprazole Sodium 40 mg 07/14/21 09:00 07/16/21 08:23 Pantoprazole 40 Mg Tablet PO 40 mg QAM [facility] Administration Polyethylene Glycol 17 gm 07/14/21 09:00 07/16/21 08:23 Polyethylene Glycol 3350 17 Gm Powd.Pack PO 17 gm QAM [facility] Administration Radiology Results: ITS Impressions Abdomen/Pelvis CT 07/13/21 12:27 IMPRESSION: 1. Persistent stool impaction of the sigmoid colon with stable focal dilatation and worsened inflammation. 2. Moderate-sized sliding hiatal hernia. [facility] [place] Follow-up Billing Inpatient Follow-up [id number] Sub[facility] Hosp Care Mod
--- NOTE | 2021-07-16 10:59 | P.DS_ITS ---
DS: Admitting Diagnosis Discharge Date 07/16/2021 Admitting Diagnosis fecal impaction, constipation, stercoral colitis, dehydration, hypertension DS: Discharge Diagnosis Discharge Diagnosis (1) Fecal impaction of colon: Code(s): K56.41 - Fecal impaction Status: Acute Assessment and Plan: CT showed 7.8 cm dilation of the sigmoid colon secondary to stool impaction * Appreciate gastroenterology consultation - ok with discharge. * Advance to regular diet - tolerating well. * He had liquid stools following soapsuds enema and mineral oil retention enema 2 days ago. * Soapsuds enema repeated yesterday morning * 300 mL magnesium citrate yesterday morning * Dulcolax and MiraLax daily * Abdominal pain resolved. * KUB today, before his 2 BMs this morning, showed:Gas pattern nonobstructive. There is reduced fecal retention in the colon compared with CT allowing for differences of technique. Status post cholecystectomy. There is dextroscoliosis at the thoracolumbar junction. No acute osseous abnormality. No abnormal calcifications. Impression:1: Nonobstructive bowel gas pattern. (2) Constipation: Qualifiers: Constipation type: unspecified constipation type Qualified Code(s): K59.00 - Constipation, unspecified Code(s): K59.00 - Constipation, unspecified Status: Acute Assessment and Plan: Plan is as detailed above. The patient Reinaldo showed me photos of his substantial formed large bowel movement this morning. Nursing staff reported to me that he has now had to large formed bowel movements today. (3) Stercoral colitis: Code(s): K52.89 - Other specified noninfective gastroenteritis and colitis Status: Acute Assessment and Plan: CT showed wall thickening and surrounding fat stranding. No evidence of ischemia or perforation. * Continue IV Zosyn - Received 10 infusions of IV Zosyn since July 14. No blood on stools. No pain with stools or bowel movements per patient report. WBC 8.4 no fevers. * White blood cell count has normalized * Patient remains afebrile * Supportive care. (4) Dehydration: Code(s): E86.0 - Dehydration Status: Acute Assessment and Plan: Secondary to poor oral intake as the patient reported being afraid to eat due to constipation. * He was adequately rehydrated with IV fluids * IV fluids discontinued as patient is tolerating oral intake, No N/V * Serum creatinine has normalized with rehydration (5) Essential (primary) hypertension: Code(s): I10 - Essential (primary) hypertension Status: Acute Assessment and Plan: Blood pressures were reviewed and have been well controlled. Last BP 149/65 * HCTZ on hold in light of dehydration * Continue metoprolol succinate * continue holding hydrochlorothiazide and lisinopril, as his systolics have been controlled between 100 to 130s * advised him to follow-up with primary care provider to discuss if he needs those 2 medications (6) Benign prostatic hyperplasia: Code(s): N40.0 - Benign prostatic hyperplasia without lower urinary tract symptoms Status: Acute Assessment and Plan: Prostate severely enlarged on CT. * No acute issues with urinary retention * Monitor urine output---had 12 voids yesterday DS: Summary Hospital Course Hospital Course: Patient was given multiple enemas, MiraLax and other anti constipation medications. He was given IV fluids. He was given clear liquids for diet. After multiple medications he started having bowel movements. And f
--- NOTE | 2021-07-16 10:59 | PM.DS ---
DS: Admitting Diagnosis Discharge Date 07/16/2021 Admitting Diagnosis fecal impaction, constipation, stercoral colitis, dehydration, hypertension DS: Discharge Diagnosis Discharge Diagnosis (1) Fecal impaction of colon: Code(s): K56.41 - Fecal impaction Status: Acute Assessment and Plan: CT showed 7.8 cm dilation of the sigmoid colon secondary to stool impaction Appreciate gastroenterology consultation - ok with discharge. Advance to regular diet - tolerating well. He had liquid stools following soapsuds enema and mineral oil retention enema 2 days ago. Soapsuds enema repeated yesterday morning 300 mL magnesium citrate yesterday morning Dulcolax and MiraLax daily Abdominal pain resolved. KUB today, before his 2 BMs this morning, showed:Gas pattern nonobstructive. There is reduced fecal retention in the colon compared with CT allowing for differences of technique. Status post cholecystectomy. There is dextroscoliosis at the thoracolumbar junction. No acute osseous abnormality. No abnormal calcifications. Impression:1: Nonobstructive bowel gas pattern. (2) Constipation: Qualifiers: Constipation type: unspecified constipation type Qualified Code(s): K59.00 - Constipation, unspecified Code(s): K59.00 - Constipation, unspecified Status: Acute Assessment and Plan: Plan is as detailed above. The patient Reinaldo showed me photos of his substantial formed large bowel movement this morning. Nursing staff reported to me that he has now had to large formed bowel movements today. (3) Stercoral colitis: Code(s): K52.89 - Other specified noninfective gastroenteritis and colitis Status: Acute Assessment and Plan: CT showed wall thickening and surrounding fat stranding. No evidence of ischemia or perforation. Continue IV Zosyn - Received 10 infusions of IV Zosyn since July 14. No blood on stools. No pain with stools or bowel movements per patient report. WBC 8.4 no fevers. White blood cell count has normalized Patient remains afebrile Supportive care. (4) Dehydration: Code(s): E86.0 - Dehydration Status: Acute Assessment and Plan: Secondary to poor oral intake as the patient reported being afraid to eat due to constipation. He was adequately rehydrated with IV fluids IV fluids discontinued as patient is tolerating oral intake, No N/V Serum creatinine has normalized with rehydration (5) Essential (primary) hypertension: Code(s): I10 - Essential (primary) hypertension Status: Acute Assessment and Plan: Blood pressures were reviewed and have been well controlled. Last BP 149/65 HCTZ on hold in light of dehydration Continue metoprolol succinate continue holding hydrochlorothiazide and lisinopril, as his systolics have been controlled between 100 to 130s advised him to follow-up with primary care provider to discuss if he needs those 2 medications (6) Benign prostatic hyperplasia: Code(s): N40.0 - Benign prostatic hyperplasia without lower urinary tract symptoms Status: Acute Assessment and Plan: Prostate severely enlarged on CT. No acute issues with urinary retention Monitor urine output---had 12 voids yesterday DS: Summary Hospital Course Hospital Course: Patient was given multiple enemas, MiraLax and other anti constipation medications. He was given IV fluids. He was given clear liquids for diet. After multiple medications he started having bowel movements. And finally today had 2 formed large bowel movements, with improvement on his KUB. Agree with GI Dr. Cantrell, stated the patient could be discharged. Will continue patient on laxatives and daily fiber. He is to follow up with his primary care provider. He can follow up with GI as needed. Time Spent with Patient Time attestation: Total time spent providing and/or coordinating discharge services:60 min Exam
== END 2021-07-16 14:45 | disposition home or self-care (01) | DRG 390 ==
LOC: ANHED 13:09 → ANH2MED 16:35
PROVIDERS: Physician Assistant; Admitting Provider Internal Medicine; Emergency Provider Emergency Medicine; PCP Family Medicine; Visit Provider Nurse Practitioner
DX: K56.41 Fecal impaction (principal); Z20.822 Contact with and (suspected) exposure to COVID-19; K52.89 Other specified noninfective gastroenteritis and colitis; E86.0 Dehydration; I10 Essential (primary) hypertension; N40.0 Benign prostatic hyperplasia without lower urinary tract symptoms; I25.10 Atherosclerotic heart disease of native coronary artery without angina pectoris; E78.2 Mixed hyperlipidemia; G47.33 Obstructive sleep apnea (adult) (pediatric); I48.0 Paroxysmal atrial fibrillation; K21.9 Gastro-esophageal reflux disease without esophagitis; Z79.82 Long term (current) use of aspirin; Z79.899 Other long term (current) drug therapy; Z87.891 Personal history of nicotine dependence; Z95.810 Presence of automatic (implantable) cardiac defibrillator
CPT/HCPCS: 36415; 74018; 74177; 80048; 80053; 83735; 84443; 85025; 85027; 86140; 96361; 96365; 96366; 96375; 96376; 99285; A9270; C9803; G0378; J1170; J2543; J3010; J7030; Q9967; U0003; U0005

== ENCOUNTER 2021-07-30 09:54 | Outpatient (CLI) | payer MEDICARE, SELFPAY ==
[2021-07-30 10:25] LABS: Basophils Percent Auto 0.6 % (0.2-1.2); Eosinophils Absolute Auto 0.1 K/mm3 (0-0.3); Eosinophils Percent Auto 2.8 % (0-4.4); Hematocrit 38.9 % (42.0-52.0); Hemoglobin 12.8 g/dL (14.0-18.0); Immature Granulocyte Absolute 0.01 K/mm3 (0.00-0.031); Immature Granulocyte Percent A 0.2 % (0-0.5); Lymphocytes Absolute Auto 1.63 K/mm3 (0.9-3.2); Lymphocytes Percent Auto 35.2 % (18.3-44.2); Mean Corpuscular HGB Conc 32.9 g/dl (32-36); Mean Corpuscular Hemoglobin 30.5 pg (26-34); Mean Corpuscular Volume 92.6 fl (80-100); Mean Platelet Volume 9.7 fl (7.4-10.4); Monocytes Absolute Auto 0.4 K/mm3 (0.1-0.6); Monocytes Percent Auto 7.6 % (2.6-8.5); Neutrophils Absolute Auto 2.5 K/mm3 (1.3-6.7); Neutrophils Percent Auto 53.6 % (45.5-73.1); Platelet Count Result 218 k/mm3 (150-375); Red Cell Distribution Width 13.2 % (11.5-14.5); White Blood Count 4.6 K/mm3 (4.5-10.0)
[2021-07-30 10:44] LABS: Alanine Aminotransferase 28 U/L (4-50); Alkaline Phosphatase 105 U/L (38-126); Anion Gap 9 mmol/L (8-16); Aspartate Amino Transferase 37 U/L (17-59); Bilirubin,Total 0.9 mg/dL (0.2-1.3); Blood Urea Nitrogen 18 mg/dL (9-20); CRP < 0.5 mg/dL (<1.0); Calcium 9.8 mg/dL (8.4-10.2); Carbon Dioxide 27 mmol/L (22-30); Chloride 102 mmol/L (98-107); Cholesterol 144 mg/dL (0-200); Estimated Glomerular Filt Rate > 60; Glucose 102 mg/dL (65-110); HDL Direct 40 mg/dL; Potassium 4.6 mmol/L (3.4-5.0); Sodium 138 mmol/L (137-145); Triglycerides 93 mg/dL (<150)
[2021-07-30 10:53] LABS: LDL Cholesterol Direct 76 mg/dL
== END 2021-07-30 09:55 | disposition home or self-care (01) ==
PROVIDERS: PCP Family Medicine; Visit Provider Physician Assistant
DX: E78.2 Mixed hyperlipidemia (principal); I10 Essential (primary) hypertension; K59.00 Constipation, unspecified; N40.0 Benign prostatic hyperplasia without lower urinary tract symptoms; Z79.899 Other long term (current) drug therapy
CPT/HCPCS: 36415; 80053; 80061; 83735; 85025; 86140

== ENCOUNTER 2021-10-05 09:56 | Outpatient (CLI) | payer MEDICARE, SELFPAY ==
--- NOTE | ~2021-10-05 | XR_ITS ---
EXAMINATION: XR ankle RT min 3V EXAM DATE: 10/05/2021 10:43 INDICATION: M25.579 - Pain To Lateral Side Of Ankle . TECHNIQUE: Right ankle frontal, lateral and oblique projections obtained and reviewed. There is no p rior study for comparison. FINDINGS: The right ankle mortise appears intact. There is mild ankle primary osteoarthritis. There are no acute fractures or dislocations identified. There is no subcutaneous gas. The soft tissue i s unremarkable. There are no radiopaque foreign bodies. Small calcaneal spur inferiorly. IMPRESSION: Mild right ankle osteoarthritis. Reviewed, dictated and finalized at location A.
[2021-10-05 10:29] LABS: Basophils Percent Auto 0.6 % (0.2-1.2); Eosinophils Absolute Auto 0.2 K/mm3 (0-0.3); Eosinophils Percent Auto 3.5 % (0-4.4); Hematocrit 43.2 % (42.0-52.0); Immature Granulocyte Absolute 0.01 K/mm3 (0.00-0.031); Immature Granulocyte Percent A 0.2 % (0-0.5); Lymphocytes Absolute Auto 1.84 K/mm3 (0.9-3.2); Lymphocytes Percent Auto 34.3 % (18.3-44.2); Mean Corpuscular HGB Conc 32.4 g/dl (32-36); Mean Corpuscular Hemoglobin 30.1 pg (26-34); Mean Corpuscular Volume 92.9 fl (80-100); Mean Platelet Volume 9.9 fl (7.4-10.4); Monocytes Absolute Auto 0.4 K/mm3 (0.1-0.6); Monocytes Percent Auto 6.9 % (2.6-8.5); Neutrophils Absolute Auto 2.9 K/mm3 (1.3-6.7); Neutrophils Percent Auto 54.5 % (45.5-73.1); Platelet Count Result 174 k/mm3 (150-375); Red Blood Count 4.65 M/mm3 (4.6-6.20); Red Cell Distribution Width 13.2 % (11.5-14.5); White Blood Count 5.4 K/mm3 (4.5-10.0)
== END 2021-10-05 09:57 | disposition home or self-care (01) ==
LOC: ANHLAB 10:01
PROVIDERS: PCP Family Medicine; Visit Provider Family Medicine
DX: I25.10 Atherosclerotic heart disease of native coronary artery without angina pectoris (principal); M19.071 Primary osteoarthritis, right ankle and foot; Z51.81 Encounter for therapeutic drug level monitoring; Z79.899 Other long term (current) drug therapy; M77.31 Calcaneal spur, right foot; I10 Essential (primary) hypertension
CPT/HCPCS: 36415; 73610; 85025

== ENCOUNTER → 2022-03-29 09:24 | Outpatient (CLI) | payer MEDICARE, SELFPAY ==
--- NOTE | ~2022-03-29 | XR_ITS ---
EXAM: XR knee RT min 4V DATE: 03/29/2022 09:39 HISTORY: M25.561 - Pain in right knee, no injury . COMPARISON: None available. FINDINGS: Decreased mineralization. No fracture or dislocation. No lytic or blastic lesion. Severe m edial joint space narrowing. Mild tricompartmental osteophytosis. No erosion or periosteal change. Va scular calcifications. Moderate volume joint fluid. IMPRESSION: Tricompartmental right knee osteoarthritis, severe in the medial compartment. Moderate ri ght knee joint effusion. Reviewed, dictated and finalized at location K. IMPRESSION: Tricompartmental right knee osteoarthritis, severe in the medial co mpartment. Moderate right knee joint effusion.
== END ==
PROVIDERS: PCP Emergency Medicine; Visit Provider Emergency Medicine
DX: M17.11 Unilateral primary osteoarthritis, right knee (principal)
CPT/HCPCS: 73564

== ENCOUNTER 2023-01-04 09:28 | Outpatient (CLI) | payer MEDICARE, SELFPAY ==
[2023-01-04 14:46] LABS: Basophils Percent Auto 0.7 % (0.2-1.2); Eosinophils Absolute Auto 0.2 K/mm3 (0-0.3); Eosinophils Percent Auto 2.9 % (0-4.4); Hematocrit 41.7 % (42.0-52.0); Hemoglobin 13.5 g/dL (14.0-18.0); Immature Granulocyte Absolute 0.01 K/mm3 (0.00-0.031); Immature Granulocyte Percent A 0.2 % (0-0.5); Lymphocytes Absolute Auto 2.15 K/mm3 (0.9-3.2); Lymphocytes Percent Auto 36.5 % (18.3-44.2); Mean Corpuscular HGB Conc 32.4 g/dl (32-36); Mean Corpuscular Hemoglobin 30.7 pg (26-34); Mean Corpuscular Volume 94.8 fl (80-100); Mean Platelet Volume 10.5 fl (7.4-10.4); Monocytes Absolute Auto 0.5 K/mm3 (0.1-0.6); Neutrophils Percent Auto 50.7 % (45.5-73.1); Platelet Count Result 181 k/mm3 (150-375); Red Cell Distribution Width 13.4 % (11.5-14.5); White Blood Count 5.9 K/mm3 (4.5-10.0)
[2023-01-04 16:25] LABS: Alanine Aminotransferase 29 U/L (6-50); Albumin Level 4.2 g/dL (3.5-5.1); Alkaline Phosphatase 97 U/L (38-126); Anion Gap 5 mmol/L (8-16); Aspartate Amino Transferase 48 U/L (17-59); Bilirubin,Total 0.8 mg/dL (0.2-1.3); Blood Urea Nitrogen 22 mg/dL (9-20); Calcium 9.5 mg/dL (8.4-10.2); Carbon Dioxide 29 mmol/L (22-30); Chloride 105 mmol/L (98-107); Cholesterol 138 mg/dL (0-200); Estimated Glomerular Filt Rate > 60; Glucose 90 mg/dL (65-110); HDL Direct 42 mg/dL; Potassium 4.3 mmol/L (3.4-5.0); Sodium 139 mmol/L (137-145); Triglycerides 102 mg/dL (<150)
[2023-01-04 16:36] LABS: LDL Cholesterol Direct 65 mg/dL
== END 2023-01-04 09:29 | disposition home or self-care (01) ==
LOC: ANHGOSHLAB 09:29
PROVIDERS: PCP Emergency Medicine; Visit Provider Emergency Medicine
DX: G47.33 Obstructive sleep apnea (adult) (pediatric) (principal); Z79.899 Other long term (current) drug therapy; E78.2 Mixed hyperlipidemia; I10 Essential (primary) hypertension
CPT/HCPCS: 36415; 80053; 80061; 85025

== ENCOUNTER → 2023-01-13 13:44 | Outpatient (CLI) | payer MEDICARE, SELFPAY ==
--- NOTE | ~2023-01-13 | XR_ITS ---
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 Cardiac pacemaker leads ar e noted. No fracture or dislocation, periosteal reaction or bone destruction. Mild narrowing at the right linda ohumeral joint. Suggestion of right rotator cuff atrophy. No abnormal soft tissue calcification of th e right shoulder is noted. IMPRESSION: Mild narrowing at the right clavicular joint suggesting osteoarthritis Probable rotator cuff atrophy Reviewed, dictated and finalized at location B. IMPRESSION: Mild narrowing at the right clavicular joint suggesting osteoarthri tis Probable rotator cuff atrophy
== END ==
PROVIDERS: PCP Emergency Medicine; Visit Provider Emergency Medicine
DX: M19.011 Primary osteoarthritis, right shoulder (principal)
CPT/HCPCS: 73030

== ENCOUNTER 2023-03-10 11:15 | Outpatient (RCR) | payer MEDICARE, SELFPAY ==
--- NOTE | 2023-01-16 14:35 | OPREHPOC ---
Outpatient Therapy Plan of Care This is a Multidisciplinary Plan of Care that may contain components documented by all disciplines (PT, OT, and ST.) PT Problem 1 PT Problem #1 Knowledge Deficit PT Goal 1 Goal Pt to be IND with issued HEP Target Visit 8 PT Problem 2 PT Problem #2 Pain PT Goal 1 Goal Pt to report shoulder pain no greater than 4/10 in the last week. Target Visit 8 PT Goal 2 Goal Pt to report 70% improvement in overall symptoms. Target Visit 8 PT Problem 3 PT Problem #3 Impaired Range of Motion PT Goal 1 Goal Pt to improve active shoulder flexion to 140 deg laverne Target Visit 8 PT Goal 2 Goal Pt to demonstrate active shoulder abduction to 125 deg laverne Target Visit 8 PT Problem 4 PT Problem #4 Impaired Functional Mobil PT Goal 1 Goal Pt to demonstrate improve upright posture in sitting Target Visit 8
--- NOTE | 2023-01-16 14:35 | PTOPEVAL1 ---
Assessment and note entered by Swapnil Chapman, PT, DPT Evaluation Information Assessment Status Evaluation Diagnosis R shoulder pain Subjective Information Pt reports shoulder pain with decreased ROM. Imaging showed R RTC atrophy and R GH joint narrowing. Pt is an avid golfer. Reported Pain Level Pain Score 0: Self Report Assessment PT Clinical Summary Reinaldo presents to therapy today for his intiail evaluation with a diagnosis of R shoulder arthritis . Today he demonstrates decreased active shoulder ROM laverne, decreased shoulder strength, and significant postural deviations. Both shoulders are equally limited but he reports more frequent and intense pain in his R shoulder compared to the L. Skilled therapy services are indicated to address the deficits noted above, to manage pain, and to return to PLOF. Plan of Care Interventions Gait Training,Hot Pack/Cold Pack,Manual Therapy, Neuro Re-education,Patient/Caregiver Educati, Therapeutic Activities,Therapeutic Exercise PT Services Indicated Yes Treatment Frequency and 2x/wk for 8 visits Duration These treatments will address the objective and functional deficits as defined above. The patient will be advanced safely and appropriately in order for the patient to progress towards his/her prior level of function. Additional exercises will be introduced and as well as a comprehensive home exercise program upon discharge, if needed, ?to ensure carryover of functional gains achieved in the clinic. This treatment plan has been reviewed and agreement upon by the patient.
--- NOTE | 2023-01-26 10:56 | PCPTNOTE ---
Patient reports he has to cancel this date due to having stitches in the shoulder he is working on.
--- NOTE | 2023-02-01 10:47 | PCPTNOTE ---
Patient canceled due to having stitches out.
--- NOTE | 2023-02-13 14:08 | PTOPPROG ---
Assessment and note entered by Swapnil Chapman, PT, DPT Evaluation Information Assessment Status Progress Diagnosis R shoulder pain Subjective Information Pt states overall his shoulder is doing much better. He states he does still have some soreness . He played 9 holes of golf without an increase in pain afterwards. He states his pain is usually a 0/10 at rest and a 7/10 at worst when moving in certain directions. Pt reports 70% improvement in overall symptoms. Assessment PT Clinical Summary Reinaldo presents to therapy today for his progress report following 5 visits of skilled therapy to treat his diagnosis of R shoulder arthritis. Today he demonstrates improved active shoulder ROM laverne, improved shoulder strength, and but still continues to have significant postural deviations. He continues to report R shoulder pain that gets up to 7/10 at its worse. Continuation of skilled therapy services are indicated to progress towards therapy goals, to manage pain, and to return to PLOF. Plan of Care Interventions Gait Training,Hot Pack/Cold Pack,Manual Therapy, Neuro Re-education,Patient/Caregiver Educati, Therapeutic Activities,Therapeutic Exercise PT Services Indicated Yes Treatment Frequency and 2x/wk for 8 visits Duration These treatments will address the objective and functional deficits as defined above. The patient will be advanced safely and appropriately in order for the patient to progress towards his/her prior level of function. Additional exercises will be introduced and as well as a comprehensive home exercise program upon discharge, if needed, ?to ensure carryover of functional gains achieved in the clinic. This treatment plan has been reviewed and agreement upon by the patient.
--- NOTE | 2023-03-13 11:30 | PCPTNOTE ---
Patient called & cancelled scheduled appointment this date due to having to take his to an appointment. He has been rescheduled.
--- NOTE | 2023-03-17 10:11 | PTOPDC ---
Assessment and note entered by Swapnil Chapman, PT, DPT Evaluation Information Assessment Status Discharge - Pt Not Present Diagnosis R shoulder pain Subjective Information Pt called and cancelled his last remaining appointment today stating his has just gotten out of the hospital. Called pt to follow up, he states his shoulder is doing better and he was able to play golf without an increase in pain which was his primary goal. He states he can be discharged at this time. Assessment PT Clinical Summary Reinaldo completed 12 visits of therapy from 01/16/23 to 03/10/23. He will be discharged at this time.
== END 2023-03-17 15:04 | disposition home or self-care (01) ==
LOC: ANHGOSHPT 11:15
PROVIDERS: PCP Emergency Medicine; Visit Provider Emergency Medicine
DX: M19.011 Primary osteoarthritis, right shoulder (principal)
CPT/HCPCS: 97110; 97112; 97140; 97161; 97530

== ENCOUNTER 2023-10-04 15:16 | Outpatient (CLI) | payer MEDICARE, SELFPAY ==
[2023-10-04 19:59] LABS: Prostate Specific Antigen 15.2 ng/mL (< OR = 4.0)
== END 2023-10-04 15:17 | disposition home or self-care (01) ==
PROVIDERS: PCP Emergency Medicine; Visit Provider Urology
DX: R97.20 Elevated prostate specific antigen [PSA] (principal)
CPT/HCPCS: 36415; 84153

== ENCOUNTER 2024-06-07 09:14 | Outpatient (CLI) | payer MEDICARE, SELFPAY ==
--- NOTE | ~2024-06-07 | XR_ITS ---
Cervical Spine: AP, lateral, open-mouth views Clinical History: Pain Findings: The normal lordotic curve is maintained. No fracture identified. There is 3 mm anterolisthe sis of C5 over C6. There is advanced degenerative disc narrowing at C6-C7. There is moderate degenera tive disc narrowing at C3-C4. There is moderate facet arthropathy throughout the cervical spine. Pre- vertebral soft tissues are unremarkable. Impression: Moderate to advanced degenerative spondylosis overall, as above. 3 mm anterolisthesis of C5 over C6. Reviewed, dictated and finalized at location M. 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 3 mm anterolisthesis of C5 over C6.
== END 2024-06-07 09:15 | disposition home or self-care (01) ==
LOC: GOSHIMG 09:15
PROVIDERS: PCP Student in an Organized Health Care Education/Training Program; Visit Provider Student in an Organized Health Care Education/Training Program
DX: M47.812 Spondylosis without myelopathy or radiculopathy, cervical region (principal); M43.12 Spondylolisthesis, cervical region; S16.1XXA Strain of muscle, fascia and tendon at neck level, initial encounter; X58.XXXA Exposure to other specified factors, initial encounter
CPT/HCPCS: 72040

== ENCOUNTER 2024-08-20 11:00 | Outpatient (RCR) | payer MEDICARE, SELFPAY ==
--- NOTE | 2024-06-25 12:35 | OPREHPOC ---
Outpatient Therapy Plan of Care This is a Multidisciplinary Plan of Care that may contain components documented by all disciplines (PT, OT, and ST.) PT Problem 1 PT Problem #1 Knowledge Deficit PT Goal 1 Goal / Goal Update [place] with HEP Target Visit 4 PT Goal 2 Goal / Goal Update Report 2 consecutive weeks with boyer no greater than 2/10 Target Visit 8 PT Problem 2 PT Problem #2 Impaired Range of Motion PT Goal 1 Goal / Goal Update 1. Improve laverne cervical rotation to 55+ degrees to improve functional field of view and range 2. Improve cervical extension tp 40 degrees to improve facet closure with reduce pain Target Visit 8 PT Problem 3 PT Problem #3 Impaired Strength PT Goal 1 Goal / Goal Update Improve laverne periscapular strength to 4/45 to improve postural stability and scapular stabilization Target Visit 8
--- NOTE | 2024-06-25 12:35 | PTOPEVAL1 ---
Assessment and note entered by Varun Hays, PT Evaluation Information Assessment Status Evaluation Diagnosis Strain of fascia of neck ICD-10 Condition Codes (PT) Cervicalgia M54.2 Onset April 2024 Subjective Information Reports that he was going through radiation for prostate cancer. He has since had some increased neck pain but is unsure of the source. He has been using Voltren and Tylenol for pain He is able to sleep okay but has a lot of pain during the day at this time. When he has been up all day his symptoms get worse so they are worse with time. He gets pain with driving as well. Sleeps with a C- PAP Reported Pain Level Pain Score 3: Self Report Assessment PT Clinical Summary Patient presents with signs and symptoms consistent with postural cervical deficits and arthritis. He demonstrates gross loss of functional cervical ROM greater to the left. 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 Plan of Care Interventions Hot Pack/Cold Pack,Manual Therapy,Neuro Re- education,Therapeutic Activities,Therapeutic Exercise PT Services Indicated Yes Treatment Frequency and 1-2sx/week for 8 visits Duration These treatments will address the objective and functional deficits as defined above. The patient will be advanced safely and appropriately in order for the patient to progress towards his/her prior level of function. Additional exercises will be introduced and as well as a comprehensive home exercise program upon discharge, if needed, ?to ensure carryover of functional gains achieved in the clinic. This treatment plan has been reviewed and agreement upon by the patient.
--- NOTE | 2024-06-28 12:07 | PCPTNOTE ---
Patient called to cancel due to weather.
--- NOTE | 2024-07-23 12:44 | OPREHPOC ---
Outpatient Therapy Plan of Care This is a Multidisciplinary Plan of Care that may contain components documented by all disciplines (PT, OT, and ST.) PT Problem 1 PT Problem #1 Knowledge Deficit PT Goal 1 Goal / Goal Update [place] with HEP Target Visit 4 Progress Met PT Goal 2 Goal / Goal Update Report 2 consecutive weeks with boyer no greater than 2/10 Target Visit 8 Progress Partially Met PT Problem 2 PT Problem #2 Impaired Range of Motion PT Goal 1 Goal / Goal Update 1. Improve laverne cervical rotation to 55+ degrees to improve functional field of view and range 2. Improve cervical extension tp 40 degrees to improve facet closure with reduce pain Target Visit 16 Progress Partially Met PT Problem 3 PT Problem #3 Impaired Strength PT Goal 1 Goal / Goal Update Improve laverne periscapular strength to 4/5 to improve postural stability and scapular stabilization Target Visit 16 Progress Partially Met
--- NOTE | 2024-07-23 12:44 | PTOPPROG ---
Assessment and note entered by Varun Hays, PT Evaluation Information Assessment Status Progress Diagnosis Strain of fascia of neck ICD-10 Condition Codes (PT) Cervicalgia M54.2 Onset April 2024 Subjective Information Reports that this morning he woke up without pain but he is still getting discomfort of an evening. He is still using his topical creams for pain relief and mobility. Assessment PT Clinical Summary Patient has seen progress in neck ROM. 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 Will benefit from continuation of skilled therapy to address. Plan of Care Interventions Hot Pack/Cold Pack,Manual Therapy,Neuro Re- education,Therapeutic Activities,Therapeutic Exercise PT Services Indicated Yes Treatment Frequency and 1-2sx/week for 8 visits Duration These treatments will address the objective and functional deficits as defined above. The patient will be advanced safely and appropriately in order for the patient to progress towards his/her prior level of function. Additional exercises will be introduced and as well as a comprehensive home exercise program upon discharge, if needed, ?to ensure carryover of functional gains achieved in the clinic. This treatment plan has been reviewed and agreement upon by the patient.
--- NOTE | 2024-07-31 10:51 | PCPTNOTE ---
Patient was canceled this date due to therapist being out of clinic with illness.
--- NOTE | 2024-08-20 12:28 | PTOPDC ---
Assessment and note entered by Varun Hays, PT Evaluation Information Assessment Status Progress Diagnosis Strain of fascia of neck ICD-10 Condition Codes (PT) Cervicalgia M54.2 Onset April 2024 Subjective Information Reports that overall he is doing well. No longer needing to take aspirin or Tylenol. Has not been using the creams as much. Sleeping is improved, but still limited due to CPAP and bathroom. Reported Pain Level Pain Score 0: Self Report Assessment PT Clinical Summary Patient has met majority of goals for therapy at this time. He is overall doing well. Still has limitations in cervical motion but strength of shoulders has significantly improved. Suitable for discharge at this time HEP. Plan of Care PT Services Indicated Yes
== END 2024-08-20 13:15 | disposition home or self-care (01) ==
LOC: ANHGOSHPT 11:00
PROVIDERS: PCP Student in an Organized Health Care Education/Training Program; Visit Provider Student in an Organized Health Care Education/Training Program
DX: S16.1XXA Strain of muscle, fascia and tendon at neck level, initial encounter (principal); M54.2 Cervicalgia
CPT/HCPCS: 97110; 97112; 97140; 97161; 97530

== ENCOUNTER 2024-12-25 10:00 | Outpatient (RCR) | payer MEDICARE, SELFPAY ==
--- NOTE | 2024-11-27 09:54 | PTOPEVAL1 ---
Assessment and note entered by Martínez Ricks Evaluation Information Assessment Status Evaluation ICD-10 Condition Codes (PT) Cervicalgia M54.2 Onset 11/28/23 Subjective Information Pt. reports that he has had on/off neck pain for years. He has had therapy in the past for neck pain. He notices that recently pain has been worsening and he is having trouble holding his head up. He reports that he has had difficulty maintaining his past exercise routine. He describes pain in the area of the paraspinals and into the upper traps. He states that his inability to hold his head up has resulted in poor balance. he does recall some recent falls due to worsening balance. He states that he is now using a cane for maintaining balance. he states that pain will occasionally wake him. He reports that his goal is to decrease his neck pain. Reported Pain Level Pain Score 5: Self Report Assessment PT Clinical Summary Pt. is an 84 year old male who enters the clinic with neck pain. He presents with severe forward head, which has also resulted in impaired balance. He presents with severe weakness of the cervical musculature, impaired postural awareness, impaired balance, mild proximal u.e. weakness, pain and functional decline. Continued skilled PT is indicated in order to improve these areas to allow the pt. improved comfort and improved efficiency and safety with IADL performance. Plan of Care Interventions Gait Training,Hot Pack/Cold Pack,Manual Therapy, Neuro Re-education,Patient/Caregiver Education, Therapeutic Activities,Therapeutic Exercise PT Services Indicated Yes Treatment Frequency and 2x/week x 10 visits Duration These treatments will address the objective and functional deficits as defined above. The patient will be advanced safely and appropriately in order for the patient to progress towards his/her prior level of function. Additional exercises will be introduced and as well as a comprehensive home exercise program upon discharge, if needed, ?to ensure carryover of functional gains achieved in the clinic. This treatment plan has been reviewed and agreement upon by the patient.
--- NOTE | 2024-11-27 09:55 | OPREHPOC ---
Outpatient Therapy Plan of Care This is a Multidisciplinary Plan of Care that may contain components documented by all disciplines (PT, OT, and ST.) PT Problem 1 PT Problem #1 Knowledge Deficit PT Goal 1 Goal / Goal Update Pt. will be independent with a HEP focused on neck mobility, strength and postural awareness Target Visit 2 PT Problem 2 PT Problem #2 Impaired Range of Motion PT Goal 1 Goal / Goal Update Pt. will present with 50 degrees bilateral c-spine rotation in order to improve visual field with activities such as driving. Target Visit 10 PT Problem 3 PT Problem #3 Impaired Safety Awareness PT Goal 1 Goal / Goal Update Pt. will be able to maintain sitting at edge of bed without u.e. support indicating improve postural awareness Pt. will maintain standing for duration of 2-3 minutes without demonstrating excessive neck flexion in order to improve balance Pt. will improve his Tinetti score to 19 or greater indicating low fall risk. Target Visit 10
--- NOTE | 2024-12-25 11:08 | PTOPDC ---
Assessment and note entered by Martínez [facility] Evaluation Information Assessment Status Progress ICD-10 Condition Codes (PT) Cervicalgia M54.2 Onset 11/28/23 Subjective Information Pt. reports that he currently has no pain in his neck. He reports that he has been pain free in the neck for about 2 weeks. He reports that he still notices he has a tendency to drop his head forward. He reports that he does have history of thyroid disfunction. He states that he is continuing to exercise at home, but does notice he has to constantly remind himself to lift his head . Reported Pain Level Pain Score 0: Self Report Assessment PT Clinical Summary While pain reports and mobility have improved at the c-spine, there is still concern regarding posture. Pt. presents with developed [id number] deformity, however demonstrates ability to better self correct without cuing, however holding his head in proper positioning is brief without cuing. Upon research, noted that thyroid disfunction can also lead to this type of deformity and I will communicate with the referring provider regarding this concern. He was given written instruction regarding bracing to utilize to combat deformity. At this time he will be discharged from our care to an independent [facility]. Plan of Care PT Services Indicated No
== END 2024-12-25 15:01 | disposition home or self-care (01) ==
LOC: ANHGOSHPT 10:00
PROVIDERS: PCP Student in an Organized Health Care Education/Training Program; Visit Provider Student in an Organized Health Care Education/Training Program
DX: M54.2 Cervicalgia (principal)
CPT/HCPCS: 97110; 97112; 97140; 97161

== ENCOUNTER 2025-01-22 03:51 | Day surgery (SDC) | payer MEDICARE, SELFPAY ==
[2025-01-20 14:49] VITALS: BMI 24.6
--- OUTSIDE RECORDS SUMMARY | 2025-01-22 03:54 | XMS_ITS | Clinical Summary ---
Author Organization [facility] Address [address] [place] [address] Care Team Providers Care Tractor Operator Name Role Phone David Ballard MD Primary Care Provider [phone] Allergies No known active allergies Medications omeprazole (PriLOSEC) 20 mg capsule take 1 capsule by oral route every day before a meal 0 0 013 Active sildenafil (VIAGRA) 100 mg tablet take 1 tablet by oral route every day as needed approximately 1 hour before sexual activity 0 016 Active multivitamin-mine rals-lutein (CENTRUM SILVER) tablet take 1 by Oral route once 0 0 013 Active meclizine (ANTIVERT) 25 mg tablet take 1 tablet by oral route 3 times every day as needed 0 0 013 Active polyethylene glycol (MIRALAX) 17 gram packetIndications :constipation Take 1 packet (17 g total) by mouth 2 (two) times a week Active metoprolol XL (TOPROL-XL) 50 mg extended release tabletIndications :Coronary artery disease involving [place] coronary artery of [place] heart without angina pectoris,Essentia l hypertension TAKE 1 TABLET BY MOUTH EVERY DAY 90 tablet 3 024 Active tamsulosin (FLOMAX) 0.4 mg extended release capsule Take 1 capsule (0.4 mg total) by mouth daily 024 Active apixaban (ELIQUIS) 5 mg tablet Take 1 tablet (5 mg total) by mouth 2 (two) times a day 60 tablet 11 024 2024 Active lisinopriL (PRINIVIL,ZESTRIL ) 10 mg tabletIndications :Essential hypertension TAKE 1 TABLET BY MOUTH EVERY DAY 90 tablet 2 025 Active atorvastatin (LIPITOR) 40 mg tabletIndications :Coronary artery disease involving [place] coronary artery of [place] heart without angina pectoris,Mixed hyperlipidemia TAKE 1 TABLET BY MOUTH EVERY DAY 90 tablet 3 025 Active atorvastatin (LIPITOR) 40 mg tabletIndications :Coronary artery disease involving [place] coronary artery of [place] heart without angina pectoris,Mixed hyperlipidemia TAKE 1 TABLET BY MOUTH EVERY DAY 90 tablet 3 024 2024 Discontinued Active Problems Problem Noted Date Diagnosed Date Malignant melanoma 05/27/2024 Coronary artery disease invo lving [place] coronary artery of [place] heart without angina pectoris 01/09/2017 Assessment & Plan (01/30/2021 2:53 PM CDT): No symptoms of myocardial ischemia. Continue aspirin. Continue metoprolol. Assessment & Plan (01/13/2020 11:15 AM CDT): No symptoms of myocardial ischemia. Continue aspirin and metoprolol. Will obtain pharmacologic stress test. Assessment & Plan (01/07/2019 5:56 PM CDT): Asymptomatic. Continue aspirin. Assessment & Plan (01/08/2018 11:22 AM CDT): No symptoms of myocardial ischemia. Recent favorable myocardial perfusion study. Assessment & Plan (01/09/2017 11:23 AM CDT): Asymptomatic. Continue anti-platelet and beta-poncho therapy. Lexiscan thallium in anticipation of ICD replacement. Essential hypertension 01/09/2017 Assessment & Plan (01/30/2021 2:53 PM CDT): Blood pressure is adequately controlled on current regimen. No change was made. Assessment & Plan (01/13/2020 11:15 AM CDT): Blood pressure is adequately controlled on current regimen. No change was made. Assessment & Plan (01/07/2019 5:56 PM CDT): Blood pressure is adequately controlled on current regimen. No change was made. Assessment & Plan (01/08/2018 11:22 AM CDT): Blood pressure is adequately controlled on current regimen. No change was made. Assessment & Plan (01/09/2017 11:24 AM CDT): Blood pressure is adequately controlled on current regimen. No change was made. Mixed hyperlipidemia 01/09/2017 Assessment & Plan (01/30/2021 2:54 PM CDT): Lipids from 09/03/2020 reviewed and at target. LDL is 65. Continue atorvastatin. Assessment & Plan (01/13/2020 11:16 AM CDT): On chronic lipid lowering therapy with good control. No changes made. Assessment & Plan (01/07/2019 5:56 PM CDT): On chronic lipid lowering therapy with good control. No changes made. Assessment & Plan (01/08/2018 11:22 AM CDT): On chronic lipid lowering therapy with good control. No changes made. Assessment & Plan (01/09/2017 11:24 AM CDT): On chronic lipid lowering therapy with good control. No changes made. 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 RACHAEL COOLEY AT [facility] Assessment & Plan (01/30/2021 2:54 PM CDT): Followed by Dr. Cooley. Assessment & Plan (01/13/2020 11:17 AM CDT): Followed by Dr. Cooley Assessment & Plan (01/07/2019 5:56 PM CDT): Followed by Dr. Cooley. Assessment & Plan (01/09/2017 11:24 AM CDT): Followed by Dr. Fitzgerald, and likely to need replacement within the next six months. 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 (Primary Dx); VT (ventricular tachycardia) (HCC) from Last 3 Months Surgical History Surgery Date Site/Laterality Comments OTHER SURGICAL HISTORY 06/19/1975 - 06/18/1976 : Thyroidectomy/partial TONSILLECTOMY 06/19/1946 - 06/18/1947 Tonsillectomy CORONARY ARTERY BYPASS GRAFT 06/19/1999 - 06/18/2000 Coronary Artery Bypass Graft CARDIAC DEFIBRILLATOR PLACEMENT Implantable Defibrillator CARDIAC DEFIBRILLATOR PLACEMENT CHOLECYSTECTOMY 06/19/2001 - 06/18/2002 Medical History Medical History Date Comments GERD (gastroesophageal reflux disease) 1989 Arthritis 2004 Cancer (HCC) skin 2010 Heart disease 1999 Hypertension 1999 Sleep apnea 2010 Thyroid disease 1975 Family History Medical History Relation Name Comments Heart attack Father gema Myocardial Infa rction; Cancer Mother almas Heart attack Mother almas Myocardial Infa rction; Relation Name Status Comments Father gema Alive Mother almas Alive Social History Tobacco Use Types Packs/Day Years Used Date Smoking Tobacco: Former Smokeless Tobacco: Former Tobacco Cessation:Counseling Given: No Alcohol Use Standard Drinks/Week Comments Yes 0 (1 standard drink = 0.6 oz pur e alcohol) Sex and Gender Information Value Date Recorded Sex Assigned at Not on file Legal Sex Male 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 REPAIRER HELPER Gender Identity Not on file Sexual Orientation Not on file Obstetrics History Last Filed Vital Signs Vital Sign Reading Time Taken Comments Blood Pressure 110/60 05/27/2024 10:20 AM REPAIRER HELPER Pulse 80 05/27/2024 10:20 AM REPAIRER HELPER Temperature - - Respiratory Rate - - Oxygen Saturation 95% 05/27/2024 10: 20 AM REPAIRER HELPER Inhaled Oxygen Concentration - - Weight 75.2 kg (165 lb 11.2 oz) 024 10:20 AM REPAIRER HELPER Height 175.3 cm (5' 9) 05/27/2024 10:2 0 AM REPAIRER HELPER Body Mass Index 24.47 05/27/2024 10:20 AM REPAIRER HELPER Plan of Treatment Health Maintenance Due Date Last Done Comments Depression Screening 1941 Fall Risk Assessment 1941 Hepatitis B Screening 10/23/1959 Pneumococcal vaccine 65+ (1 of 1 - PCV) 10/23/1991 Abdominal Aortic Aneurysm (A AA) Screen 2006 Well Visit 65+ 2006 DTaP/Tdap/Td Vaccine (1 - Tdap) 10/18/2017 8 Zoster Vaccine (2 of 2) 09/04/2018 07/10/2018, 05/07 Influenza Vaccine (#1) 2025 4, 03/20/2019, 03/05/2018 Procedures Procedure Name Priority Date/Time Associated Diagnosis Comments DEVICE CHECK - REMOTE Routine 11/25/2024 8:19 AM CDT VT (ventricular tachycardia) (HCC) from Last 3 Months Results * DEVICE CHECK - REMOTE (11/25/2024 8:19 AM CDT) Anatomical Region Laterality Modality Other Narrative 11/26/2024 11:51 AM CDT Table formatting from the original result was not included. ICD CHECK (REMOTE) Patient ID: Reinaldo Joseph is a 84 y.o. male This patient received a Medtronic ICD. They had a remote transmission on 11/25/2024. Device implant indications: Ventricular tachycardia Interrogation of the patient's device demonstrates the following: Presenting EGM: A sensed V sensed with PVCs @ 60 bpm Original Device Settings Right Atrium Right Ventricle Sensitivity (mV) 0.3 mV 0.3 mV Pacing Outputs 1.5 V @ 0.4 ms 2.5 V @ 0.4 ms Testing Measurements Right Atrium Right Ventricle Sensitivity (mV) 2.1 mV 8.6 mV Impedence (Ohms) 361 ohms 361 ohms High Voltage Impedence 67 ohms Pace Threshold 0.75 V @ 0.4 ms 1.25 V @ 0.4 ms Pacing % 9.2 % Less than 0.1 % Battery Status: 2.7 years to ALICIA with Charge Time 4.1 seconds Episodes last 90 days/Comments: AF [place] 0%, longest duration0 There were no treated ventricular arrhythmias noted on today's remote interrogation. NORMAL DEVICE FUNCTION PROGRAMMED Medications: Anti-coagulant(s): Eliquis 5 mg twice daily Anti-arrhythmic(s): Toprol-XL 50 mg daily PLAN: 1) Medtronic ICD evaluation. 2) Medtronic remote transmission scheduled in 3 months. 3) Programming appropriate for device measurements Enrico Torres RN Carl Dee MD [facility] PROC EDURES Final Result from Last 3 Months Insurance AETNA MEDICARE [facility] MEDICARE Address: [facility] [id number] [place] [phone] [facility] MEDICARE [facility] MEDICARE Address: [address] [place] [address] A[employer]NA [facility] Address: [address] [place] [address] Care Teams Tractor Operator Relationship Specialty Start Date End Date David Ballard MD PCP - General Family Medicine 02/22/22
--- OUTSIDE RECORDS SUMMARY | 2025-01-22 03:54 | XMS_ITS | Referral Summary ---
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 (Primary Dx); VT (ventricular tachycardia) (HCC) from Last 3 Months Allergies No known active allergies Medications omeprazole [...] extended release tabletIndications :Coronary artery disease involving [place] coronary artery of [place] heart without angina pectoris,Essentia l hypertension TAKE 1 TABLET BY MOUTH EVERY DAY 90 tablet 3 024 Active tamsulosin (FLOMAX) 0.4 mg extended release capsule Take 1 capsule (0.4 mg total) by mouth daily Active apixaban (ELIQUIS) 5 mg tablet Take 1 tablet (5 mg total) by mouth 2 (two) times a day 60 tablet 11 024 2024 Active lisinopriL (PRINIVIL,ZESTRIL ) 10 mg tabletIndications :Essential hypertension TAKE 1 TABLET BY MOUTH EVERY DAY 90 tablet 2 025 Active atorvastatin (LIPITOR) 40 mg tabletIndications :Coronary artery disease involving [place] coronary artery of [place] heart without angina pectoris,Mixed hyperlipidemia TAKE 1 TABLET BY MOUTH EVERY DAY 90 tablet 3 025 Active atorvastatin (LIPITOR) 40 mg tabletIndications :Coronary artery disease involving [place] coronary artery of [place] heart without angina pectoris,Mixed hyperlipidemia TAKE 1 TABLET BY MOUTH EVERY DAY 90 tablet 3 024 2024 Discontinued Active Problems Problem Noted Date Diagnosed Date Malignant melanoma 05/27/2024 Coronary artery disease invo lving [place] coronary artery of [place] heart without angina pectoris 01/09/2017 Assessment & [...] ICD FOLLOWED BY DR. RACHAEL COOLEY AT [facility] Assessment & Plan (01/30/2021 2:54 PM CDT): Followed by Dr. Cooley. Assessment & Plan (01/13/2020 11:17 AM CDT): Followed by Dr. Cooley Assessment & Plan (01/07/2019 5:56 PM CDT): Followed by Dr. Cooley. Assessment & Plan (01/09/2017 11:24 AM CDT): Followed by Dr. Fitzgerald, and likely to need replacement within the next six months. Social History Tobacco Use Types Packs/Day Years Used Date Smoking Tobacco: Former Smokeless Tobacco: Former Tobacco Cessation:Counseling Given: No Alcohol Use Standard Drinks/Week Comments Yes 0 (1 standard drink = 0.6 oz pur e alcohol) Sex and Gender Information Value Date Recorded Sex Assigned at Not on file Legal Sex Male 7:20 PM PROGRAM PLANNER Gender Identity Not on file Sexual Orientation Not on file Last Filed Vital Signs Vital Sign Reading Time Taken Comments Blood Pressure 110/60 05/27/2024 10:20 AM PROGRAM PLANNER Pulse 80 05/27/2024 10:20 AM PROGRAM PLANNER Temperature - - Respiratory Rate - - Oxygen Saturation 95% 05/27/2024 10: 20 AM PROGRAM PLANNER Inhaled Oxygen Concentration - - Weight 75.2 kg (165 lb 11.2 oz) 024 10:20 AM PROGRAM PLANNER Height 175.3 cm (5' 9) 05/27/2024 10:2 0 AM PROGRAM PLANNER Body Mass Index 24.47 05/27/2024 10:20 AM PROGRAM PLANNER Plan of Treatment Not on file Procedures Procedure Name Priority Date/Time Associated Diagnosis [...] 4.1 seconds Episodes last 90 days/Comments: AF [place] 0%, longest duration0 There were no treated ventricular arrhythmias noted on today's remote interrogation. NORMAL DEVICE FUNCTION PROGRAMMED Medications: Anti-coagulant(s): Eliquis 5 mg twice daily Anti-arrhythmic(s): Toprol-XL 50 mg daily PLAN: 1) Medtronic ICD evaluation. 2) Medtronic remote transmission scheduled in 3 months. 3) Programming appropriate for device measurements Enrico Torres, RN Carl Dee MD [facility] C[facility] PROC EDURES Final Result from Last 3 Months Insurance AETNA MEDICARE AET[employer] MEDICARE Care Teams Computing Systems Mechanic Relationship Specialty Start Date End Date David Ballard MD PCP - General Family Medicine 02/22/22
--- OUTSIDE RECORDS SUMMARY | 2025-01-22 03:54 | XMS_ITS | Encounter Summary ---
Author Organization [facility] Address [address] [place] [address] Care Team Providers Care Manager Endoscopy Name Role Phone David Ballard MD Primary Care Provider [phone] Encounter Details Date Type Department Care Team (Late st Contact Info) Description 01/21/2025 Telephone Arrhythmia Center [address] [facility] [address] [place] [id number] Carl Dee MD [address] [address] Social History Tobacco Use Types Packs/Day Years Used Date Smoking Tobacco: Former Smokeless Tobacco: Former Alcohol Use Standard Drinks/Week Comments Yes 0 (1 standard drink = 0.6 oz pur e alcohol) Sex and Gender Information Value Date Recorded Sex Assigned at Not on file 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 - 01/21/2025 10:09 AM CDT G[facility]nesis from [facility] called about colonoscopy clearance: She was confirming fax has been received by office and signed per pt is having colonoscopy tomorrow. Her fax is [phone] documented in this encounter Plan of Treatment Not on file documented as of this encounter Visit Diagnoses Not on filedocumented in this encounter Care Teams Manager Endoscopy Relationship Specialty Start Date End Date David Ballard MD PCP - General Family Medicine 02/22/22 documented as of this encounter
--- OUTSIDE RECORDS SUMMARY | 2025-01-22 03:55 | XMS_ITS | Encounter Summary ---
Author Organization [facility] Address [address] [address] Care Team Providers Care Mold Worker Name Role Phone Emmanuel Shea MD Primary Care Provider [phone] David Ballard MD Primary Care Provider [phone] Encounter Details Date Type Department Care Team (Latest Contact Info) Description 07/06/2016 Orders Only [facility] [place] ProviderKiko MD [address] [place] [address] Social History Tobacco Use Types Packs/Day Years Used Date Smoking Tobacco: Former Cigarettes Q uit: 06/19/1964 Alcohol Use Standard Drinks/Week Comments Yes 0 (1 standard drink = 0.6 oz pur e alcohol) Sex and Gender Information Value Date Recorded Sex Assigned at Not on file 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 Historical Provider [facility] GELY MAYES Final Result documented in this encounter Visit Diagnoses Not on filedocumented in this encounter Care Teams Mold Worker Relationship Specialty Start Date End Date Emmanuel Shea MD [address] [place] [address] PCP - General 01/01/13 02/21/22 David Ballard MD [address] [place] [address] PCP - General Family Medicine 02/22/22 documented as of this encounter
--- OUTSIDE RECORDS SUMMARY | 2025-01-22 03:55 | XMS_ITS | Clinical Summary ---
Author Organization [facility] [address] [facility] Address [address] [place] [address] Care Team Providers Care Skirt Clipper Name Role Phone Sreekanth Shea MD Primary Care Provider [phone] Allergies No known active allergies Medications atorvastatin (LIPITOR) 40 mg tablet TK 1 T PO ONCE A DAY 1 9 Active metoprolol succinate (TOPROL XL) 50 mg Extended Release 24 hour tablet Take 50 mg by mouth daily. 1 9 Active lisinopril (PRINIVIL) 10 mg tablet Take 10 mg by mouth daily. 3 9 Active folic acid/multivit-m in/lutein (CENTRUM SILVER ORAL) Take 1 Tablet by mouth. Active aspirin (ECOTRIN EC) 81 mg Tablet, Delayed Release (E.C.) 81 mg. 3 Active meclizine (ANTIVERT) 25 mg tablet 25 mg Continuous as needed. 3 Active omeprazole (PriLOSEC) 20 mg Capsule, Delayed Release(E.C.) Take 20 mg by mouth daily. 2 9 Active sildenafiL 100 mg tablet 100 mg. 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 cardioverter-defibrillator)minoo, in situ 06/04/2018 Encounters Date Type Department Care Team Description 01/21/2025 External Device Data [facility] Provider, Abstract 01/01/2025 External Device Data [facility] Provider, Abstract 12/31/2024 External Device Data [facility] Provider, Abstract 11/06/2024 External Device Data [facility] Provider, Abstract 11/05/2024 External Device Data [facility] Provider, Abstract from Last 3 Months Social History Tobacco Use Types Packs/Day Years Used Date Smoking Tobacco: Former Cigarettes Q uit: 06/19/1965 Smokeless Tobacco: Never Alcohol Use Standard Drinks/Week Comments Yes 1 (1 standard drink = 0.6 oz pur e alcohol) Sex and Gender Information Value Date Recorded Sex Assigned at Not on file Legal Sex Male 5:47 PM CDT Gender Identity Not on file Sexual Orientation Not on file Last Filed Vital Signs Vital Sign Reading Time Taken Comments Blood Pressure 114/60 07/06/2023 1:52 PM TRANSFER AGENT [place] Pulse - - Temperature 36 C (96.8 F) 05/26/2020 10:53 AM TRANSFER AGENT Respiratory Rate - - Oxygen Saturation - - Inhaled Oxygen Concentration - - Weight 78 kg (172 lb) 07/06/2023 1:52 PM TRANSFER AGENT Height 177.8 cm (5' 10) 07/06/2023 1:52 PM TRANSFER AGENT Body Mass Index 24.68 07/06/2023 1:52 PM TRANSFER AGENT Plan of Treatment Health Maintenance Due Date Last Done Comments DTAP/TDAP/TD VACCINES (1 - Tdap) 1960 PNEUMOCOCCAL VACCINE 50+ YEARS (1 of 1 - PCV) 10/22/18 92 ZOSTER VACCINE (1 of 2) 10/23/1991 RSV VACCINE (60+ or ) (1 - 1-dose 75+ series) 2016 INFLUENZA VACCINE (#1) 2025 Insurance AETNA PPO [facility] Care Teams Skirt Clipper Relationship Specialty Start Date End Date Sreekanth Shea MD [address] [place] [address] PCP - General Family Practice 06/01/18
--- OUTSIDE RECORDS SUMMARY | 2025-01-22 03:55 | XMS_ITS | Encounter Summary ---
Author Organization [facility] Address [address] [place] [address] Care Team Providers Care Embossing Machine Operator Helper Name Role Phone Sreekanth Shea MD Primary Care Provider [phone] Encounter Details Date Type Department Care Team (Late st Contact Info) Description 01/21/2025 External Device Data [facility] Provider, Abstract NO ADDRESS ON FILE Social History Tobacco Use Types Packs/Day Years [...] on filedocumented in this encounter Care Teams Embossing Machine Operator Helper Relationship Specialty Start Date End Date Sreekanth Shea MD [address] [place] [address] PCP - General Family Practice 06/01/18 documented as of this encounter
--- OUTSIDE RECORDS SUMMARY | 2025-01-22 03:55 | XMS_ITS | Encounter Summary ---
Author Organization [facility] Address [address] [address] Care Team Providers Care Train Operations Manager Name Role Phone Emmanuel Shea MD Primary Care Provider [phone] David Ballard MD Primary Care Provider [phone] Encounter Details Date Type Department Care Team (Latest Contact Info) Description 10/03/2016 Orders Only [facility] [place] ProviderKiko MD [address] [place] [address] Social History Tobacco Use Types Packs/Day Years Used Date Smoking Tobacco: Former Cigarettes Q uit: 06/19/1964 Alcohol Use Standard Drinks/Week Comments Yes 0 (1 standard drink = 0.6 oz pur e alcohol) Sex and Gender Information Value Date Recorded Sex Assigned at Not on file 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 Historical Provider [facility] GELY MAYES Final Result documented in this encounter Visit Diagnoses Not on filedocumented in this encounter Care Teams Train Operations Manager Relationship Specialty Start Date End Date Emmanuel Shea MD [address] [place] [address] PCP - General 01/01/13 02/21/22 David Ballard MD [address] [place] [address] PCP - General Family Medicine 02/22/22 documented as of this encounter
[2025-01-22 08:25] VITALS: BP 149/75; PULSE 64; RESP 22; O2SAT 100; BMI 23.8
[2025-01-22] MEDS: LACTATED RINGERS 1,000 ML 150 ML IV CONT (08:29)
--- NOTE | 2025-01-22 08:37 | WPDANESEPPF ---
Anes - Initial Pre Proc Eval Procedure: Operation Date: 01/22/25 09:00 Proposed Procedures p Diagnostic Colonoscopy - Frank Kamara MD s [facility] Hemorrhoid Treatment - Frank Kamara MD Date/Time: 01/22/25 08:37 Surgeon: Frank Kamara MD Pre Op Diagnosis: Hemorrhage of anus and rectum Patient Data Age: 84 Gender: M Height: 1.75 m Weight: 73.4 kg Last Vital Signs Pulse 64 01/22/25 08:25 Resp 22 H 01/22/25 08:25 BP 149/75 H 01/22/25 08:25 Pulse Ox 100 01/22/25 08:25 O2 Del Method Room Air 01/22/25 08:25 Allergies Allergy/AdvReac Type Severity Reaction Status Date / Time No Known Allergies Allergy Mild Verified 01/22/25 08:23 Home Medications ?Medication ?Instructions ?Recorded ?Confirmed ?Type meclizine 25 mg tablet 25 mg PO PRN PRN Dizziness Or 05/03/19 01/20/25 History Vertigo pjsnfazm-mgb-xrsyf acid 0.4 1 tablet PO DAILY 05/03/19 01/22/25 History mg-lycopene 300 mcg-lutein 250 mcg tablet (Centravites 50 Plus) sildenafil 100 mg tablet (Viagra) 100 mg PO DAILY PRN Erectile 05/03/19 01/20/25 History Dysfunction atorvastatin 40 mg tablet See Rx Instructions .Route 09/13/22 01/22/25 Rx .COMPLEX #90 tabs metoprolol succinate 50 mg See Rx Instructions .Route 01/12/23 01/22/25 Rx tablet,extended release 24 hr .COMPLEX #90 tabs lisinopril 10 mg tablet See Rx Instructions .Route 02/23/23 01/22/25 Rx .COMPLEX #90 tabs CPAP Equipment #1 ea 03/31/23 12/09/24 Rx CPAP Machine #1 ea 04/11/23 12/09/24 Rx apixaban 5 mg tablet (Eliquis) 5 mg PO Q12H 06/07/24 01/22/25 History tamsulosin 0.4 mg capsule 0.4 mg PO Q24H PRN urinary 06/07/24 01/20/25 History retention omeprazole 20 mg capsule,delayed See Rx Instructions .Route 11/27/24 01/22/25 Rx release .COMPLEX #90 caps jcbnlfxy-xp-sddco 300 mcg-K 60 1 tablet PO DAILY 01/20/25 01/20/25 History mcg-lycop 600 mcg-lutein 300 mcg tablet (Centrum Silver Men) psyllium husk 3.4 gram/5.4 gram 1 tbsp PO DAILY PRN Constipation 01/20/25 01/20/25 History oral powder (Metamucil) Patient hx anesthesia problems: none Family hx anesthesia problems: none Results Review: All pre-operative results and documents have been reviewed as part of the pre-operative evaluation. [facility] Past Medical History Medical History (Updated 01/21/25 @ 14:54 by Syd Sainz DO) ICD (implantable cardioverter-defibrillator) in place Coronary artery disease Diverticulitis Benign prostatic hyperplasia Obstructive sleep apnea Paroxysmal atrial fibrillation Essential (primary) hypertension Mixed hyperlipidemia Surgical History Surgical History (Updated 12/09/24 @ 11:41 by Martínez Bellamy MD) History of coronary artery bypass graft (1999) History of tonsillectomy (194) History of thyroidectomy (1975) History of cholecystectomy (2002) Cardiac pacemaker (2009) Presence of combination internal cardiac defibrillator (ICD) and pacemaker (10/2017) Family History Family History Father Family history of cardiovascular disease Acute myocardial infarction Cerebrovascular accident Malignant neoplasm of prostate Mother Cerebrovascular accident, Onset Age: 87 Family history of Alzheimer's disease, Onset Age: 87 Acute myocardial infarction Family history of malignant neoplasm of breast Family history of dementia Social History Social History Social History: Surrogate decision maker: Nga Jake, spouse. Code status: Full code. Smoking packs per day: 0.5 Smoking cigarettes per day: 10.0 Years smoked: 4 Smoking pack-years: 2.00 Smoking status: Former smoker Alcohol intake: current Drinks per week: 7 Alcohol use details: BEERS Substance use: never Substance use type: does not use Lack of Transportation: No Lack of Food: Never True Current Housing: I Have Housing Concerned About Future Housing: No Difficulty Paying Gas/Electric Bills: No Difficulty Paying for Meds: No Currently Unemployed: No Education: Master's Degree or Higher Difficulty w/ Childcare or Family Care: No Living arrangements: with family Additional living arrangements comments: Lives in [place] with his . Additional occupation/education comments: Retired. Spiritual care concerns: No Anes - Eval Final PreProcedure Day of Procedure 01/22/25 08:37 Patient weight: normal Heart: regular rate and rhythm Lungs: clear to auscultation Airway: Mallampati scale class II Neurological: alert and oriented Last oral intake: >/= 8 hours ASA classification: IV Emergent: no Anesthetic plan: proceed Anesthesia type and monitoring: general GIVS and standard monitoring Results Review: All pre-operative results and documents have been reviewed as part of the pre-operative evaluation. Informed Consent: The patient's anesthetic plan and its attendant risks and benefits were discussed with the patient/family/POA. Questions were solicited and answers provided to the satisfaction of the patient/family/POA.
--- NOTE | 2025-01-22 08:48 | P.HP_ITS ---
History of Present Illness History of Present Illness Consent: Risks, benefits, and alternatives have been discussed and questions answered. Patient agrees to proceed with procedure. Chief complaint: Hemorrhage of anus and rectum Narrative: Reinaldo Joseph is a 84 year old male with blood in stool, better with suppository, last colonoscopy 8 years ago Review of Systems Review of Systems: All systems reviewed & are unremarkable except as noted in HPI and below PMFSH Past Medical History Medical History (Updated 01/21/25 @ 14:54 by Syd Sainz DO) ICD (implantable cardioverter-defibrillator) in place Coronary artery disease Diverticulitis Benign prostatic hyperplasia Obstructive sleep apnea Paroxysmal atrial fibrillation Essential (primary) hypertension Mixed hyperlipidemia Surgical History Surgical History (Updated 12/09/24 @ 11:41 by Martínez Bellamy MD) History of coronary artery bypass graft (1999) History of tonsillectomy (1947) History of thyroidectomy (1975) History of cholecystectomy (2002) Cardiac pacemaker (2009) Presence of combination internal cardiac defibrillator (ICD) and pacemaker (10/2017) Family History Family History Father Family history of cardiovascular disease Acute myocardial infarction Cerebrovascular accident Malignant neoplasm of prostate Mother Cerebrovascular accident, Onset Age: 87 Family history of Alzheimer's disease, Onset Age: 87 Acute myocardial infarction Family history of malignant neoplasm of breast Family history of dementia Social History Social History Social History: Surrogate decision maker: Nga Joseph, spouse. Code status: Full code. Smoking packs per day: 0.5 Smoking cigarettes per day: 10.0 Years smoked: 4 Smoking pack-years: 2.00 Smoking status: Former smoker Alcohol intake: current Drinks per week: 7 Alcohol use details: BEERS Substance use: never Substance use type: does not use Lack of Transportation: No Lack of Food: Never True Current Housing: I Have Housing Concerned About Future Housing: No Difficulty Paying Gas/Electric Bills: No Difficulty Paying for Meds: No Currently Unemployed: No Education: Master's Degree or Higher Difficulty w/ Childcare or Family Care: No Living arrangements: with family Additional living arrangements comments: Lives in [place] with his . Additional occupation/education comments: Retired. Spiritual care concerns: No Meds Home Medications and Allergies Home Medications ?Medication ?Instructions ?Recorded ?Confirmed ?Type meclizine 25 mg tablet 25 mg PO PRN PRN Dizziness Or 05/03/19 01/20/25 History Vertigo oxqxbjgy-ixi-iseqr acid 0.4 1 tablet PO DAILY 05/03/19 01/22/25 History mg-lycopene 300 mcg-lutein 250 mcg tablet (Centravites 50 Plus) sildenafil 100 mg tablet (Viagra) 100 mg PO DAILY PRN Erectile 05/03/19 01/20/25 History Dysfunction atorvastatin 40 mg tablet See Rx Instructions .Route 09/13/22 01/22/25 Rx .COMPLEX #90 tabs metoprolol succinate 50 mg See Rx Instructions .Route 01/12/23 01/22/25 Rx tablet,extended release 24 hr .COMPLEX #90 tabs lisinopril 10 mg tablet See Rx Instructions .Route 02/23/23 01/22/25 Rx .COMPLEX #90 tabs CPAP Equipment #1 ea 03/31/23 12/09/24 Rx CPAP Machine #1 ea 04/11/23 12/09/24 Rx apixaban 5 mg tablet (Eliquis) 5 mg PO Q12H 06/07/24 01/22/25 History tamsulosin 0.4 mg capsule 0.4 mg PO Q24H PRN urinary 06/07/24 01/20/25 History retention omeprazole 20 mg capsule,delayed See Rx Instructions .Route 11/27/24 01/22/25 Rx release .COMPLEX #90 caps hapswnjg-ew-voubu 300 mcg-K 60 1 tablet PO DAILY 01/20/25 01/20/25 History mcg-lycop 600 mcg-lutein 300 mcg tablet (Centrum Silver Men) psyllium husk 3.4 gram/5.4 gram 1 tbsp PO DAILY PRN Constipation 01/20/25 01/20/25 History oral powder (Metamucil) Allergies Allergy/AdvReac Type Severity Reaction Status Date / Time No Known Allergies Allergy Mild Verified 01/22/25 08:23 Vital Signs Vital Signs - 24 hr 01/22/25 08:25 Pulse Rate 64 Respiratory Rate 22 H Blood Pressure 149/75 H Pulse Oximetry 100 Oxygen Delivery Room Air Exam Const: General: comfortable and no acute distress HENMT: Face/Nose/Sinus: Normal nares present Eyes: General: appearance normal, both eyes and all related structures Neck: Neck: no JVD Resp: Auscultation: clear to auscultation bilaterally Cardio: Rate: regular rate Rhythm: regular rhythm GI: Inspection: non-distended GI Palp: Yes Soft to palpation Skin: General skin exam: normal color Neuro: Speech: normal speech Extrem: General: normal to inspection Psych: Mental Status: mental status grossly normal Assessment and Plan Assessment and plan (1) Rectal bleeding: Code(s): K62.5 - Hemorrhage of anus and rectum Status: Acute Assessment and Plan: colonoscopy
[2025-01-22 09:20] VITALS: BP 133/60; PULSE 55; RESP 19; O2SAT 100
--- NOTE | 2025-01-22 09:22 | W.PM.PROC2 ---
Procedure Note - Detailed Date of Procedure 01/22/25 Pre-op Diagnosis Hemorrhage of anus and rectum Post-op Diagnosis Same Procedure Performed irc of internal hemorrhoids Surgeon Frank Kamara MD Anesthesia MAC (also had colonoscopy) Findings grade II internal hemorrhoids Description of Procedure used anoscopy and noted grade II internal hemorrhoids, no bleeding, no fissure. Then introduced IRC probe and hemorrhoids treated for 1.5 seconds x7
[2025-01-22 09:30] VITALS: BP 104/80; PULSE 52; RESP 20; O2SAT 100
[2025-01-22 09:40] VITALS: BP 125/70; PULSE 56; RESP 20; O2SAT 100
== END 2025-01-22 10:04 | disposition home or self-care (01) ==
PROVIDERS: PCP Family Medicine; Referring Provider Family Medicine; Visit Provider Internal Medicine Gastroenterology
PROC: 0DJD8ZZ Inspection of Lower Intestinal Tract, Via Natural or Artificial Opening Endoscopic (ICD-10-PCS; CPT 45378; principal; 2025-01-22 09:00)
PROC: (CPT 46930; 2025-01-22 09:00)
DX: K64.8 Other hemorrhoids (principal); K57.30 Diverticulosis of large intestine without perforation or abscess without bleeding; I10 Essential (primary) hypertension; E78.2 Mixed hyperlipidemia; N40.0 Benign prostatic hyperplasia without lower urinary tract symptoms; G47.33 Obstructive sleep apnea (adult) (pediatric); I25.10 Atherosclerotic heart disease of native coronary artery without angina pectoris; I48.0 Paroxysmal atrial fibrillation; Z79.01 Long term (current) use of anticoagulants; Z99.89 Dependence on other enabling machines and devices; Z98.890 Other specified postprocedural states; Z95.810 Presence of automatic (implantable) cardiac defibrillator; Z90.49 Acquired absence of other specified parts of digestive tract; Z95.5 Presence of coronary angioplasty implant and graft; Z87.891 Personal history of nicotine dependence; Z87.19 Personal history of other diseases of the digestive system; Z80.42 Family history of malignant neoplasm of prostate; Z80.3 Family history of malignant neoplasm of breast; Z82.49 Family history of ischemic heart disease and other diseases of the circulatory system
CPT/HCPCS: 45378; 46930; J2003; J2704; J7120

== ENCOUNTER 2025-01-28 11:06 | Outpatient (CLI) | payer MEDICARE, SELFPAY ==
--- OUTSIDE RECORDS SUMMARY | 2025-01-28 11:58 | XMS_ITS | Clinical Summary ---
Author Organization [facility] Address [address] [place] [address] Care Team Providers Care Craft Manager Name Role Phone David Ballard MD Primary Care Provider [phone] Allergies No known active allergies Medications omeprazole [...] extended release tabletIndications :Coronary artery disease involving [place] coronary artery of [place] heart without angina pectoris,Essentia l hypertension TAKE [...] 40 mg tabletIndications :Coronary artery disease involving [place] coronary artery of [place] heart without angina pectoris,Mixed hyperlipidemia TAKE 1 TABLET BY MOUTH EVERY DAY 90 tablet 3 025 Active atorvastatin (LIPITOR) 40 mg tabletIndications :Coronary artery disease involving [place] coronary artery of [place] heart without angina pectoris,Mixed hyperlipidemia TAKE 1 TABLET BY MOUTH EVERY DAY 90 tablet 3 024 2024 Discontinued Active Problems Problem Noted Date Diagnosed Date Malignant melanoma 05/27/2024 Coronary artery disease invo lving [place] coronary artery of [place] heart without angina pectoris 01/09/2017 Assessment & [...] ICD FO[facility] Assessment & Plan (01/30/2021 2:54 PM CDT): [...] 01/21/2025 Telephone [facility] [address] [address] Carl Dee MD 11/25/2024 2:45 PM CDT Ancillary Procedure Arrhythm[facility] [address], [place] [address] ICD (implantable cardioverter-defibr illator) in [...] on file Legal Sex Male 7:20 PM VETERINARY LABORATORY DIAGNOSTICIAN Gender Identity Not on file Sexual Orientation Not on file Obstetrics History Last Filed Vital Signs Vital Sign Reading Time Taken Comments Blood Pressure 110/60 05/27/2024 10:20 AM VETERINARY LABORATORY DIAGNOSTICIAN Pulse 80 05/27/2024 10:20 AM VETERINARY LABORATORY DIAGNOSTICIAN Temperature - - Respiratory Rate - - Oxygen Saturation 95% 05/27/2024 10: 20 AM VETERINARY LABORATORY DIAGNOSTICIAN Inhaled Oxygen Concentration - - Weight 75.2 kg (165 lb 11.2 oz) 024 10:20 AM VETERINARY LABORATORY DIAGNOSTICIAN Height 175.3 cm (5' 9) 05/27/2024 10:2 0 AM VETERINARY LABORATORY DIAGNOSTICIAN Body Mass Index 24.47 05/27/2024 10:20 AM VETERINARY LABORATORY DIAGNOSTICIAN Plan of Treatment Health Maintenance Due Date [...] 4.1 seconds Episodes last 90 days/Comments: AF [place] 0%, longest duration0 There were no treated [...] from Last 3 Months Insurance [employer] MEDICARE [facility] MEDICARE AETNA MEDICARE [facility] Address: [address] [place] [address] Care Teams Craft Manager Relationship Specialty Start Date End Date David Ballard MD PCP - General Family Medicine 02/22/22
--- OUTSIDE RECORDS SUMMARY | 2025-01-28 11:58 | XMS_ITS | Encounter Summary ---
Author Organization [facility] Address [address] [address] Care Team Providers Care Piano Technician Name Role Phone Emmanuel Shea MD Primary Care Provider [phone] David Ballard MD Primary Care Provider [phone] Encounter Details Date Type Department Care Team (Latest Contact Info) Description 07/06/2016 Orders Only [facility] [place] Provider[place]iko MD [address] [place] [address] Social History Tobacco Use Types Packs/Day Years Used Date Smoking Tobacco: Former Cigarettes Q uit: 06/19/1964 Alcohol Use Standard Drinks/Week Comments Yes 0 (1 standard drink = 0.6 oz pur e alcohol) Sex and Gender Information Value Date Recorded Sex Assigned at Not on file Legal Sex Male 7:20 PM VOLUMETRIC WEIGHER Gender Identity Not on file Sexual Orientation [...] on filedocumented in this encounter Care Teams Piano Technician Relationship Specialty Start Date End Date Emmanuel Shea MD [address] [place] [address] PCP - General 01/01/13 02/21/22 David Ballard MD [address] [place] [address] PCP - General Family Medicine 02/22/22 documented as of this encounter
--- OUTSIDE RECORDS SUMMARY | 2025-01-28 11:58 | XMS_ITS | Encounter Summary ---
Author Organization [facility] Address [address] [address] Care Team Providers Care Superintendent Gas Distribution Name Role Phone Emmanuel Shea MD Primary Care Provider [phone] David Ballard MD Primary Care Provider Encounter Details Date Type Department Care Team (Latest Contact Info) Description 10/03/2016 [place] [facility] [place] ProviderKiko MD [address] [place] [address] Social History Tobacco Use Types Packs/Day Years Used Date Smoking Tobacco: Former Cigarettes Q uit: 06/19/1964 Alcohol Use Standard Drinks/Week Comments Yes 0 (1 standard drink = 0.6 oz pur e alcohol) Sex and Gender Information Value Date Recorded Sex Assigned at Not on file Legal Sex Male 7:20 PM CUFF KNITTER Gender Identity Not on file Sexual Orientation [...] on filedocumented in this encounter Care Teams Superintendent Gas Distribution Relationship Specialty Start Date End Date Emmanuel Shea MD [address] [place] [address] PCP - General 01/01/13 02/21/22 David Ballard MD [address] [place] [address] PCP - General Family Medicine 02/22/22 documented as of this encounter
--- OUTSIDE RECORDS SUMMARY | 2025-01-28 11:58 | XMS_ITS | Clinical Summary ---
Author Organization [employer] [address] [facility] Address [address] [place] [address] Care Team Providers Care Bricklayer Name Role Phone Sreekanth Shea MD Primary Care Provider [phone] Allergies No known active allergies Medications atorvastatin [...] Comments Blood Pressure 114/60 07/06/2023 1:52 PM ROBOTICS TESTING TECHNICIAN [place] Pulse - - Temperature 36 C (96.8 F) 05/26/2020 10:53 AM ROBOTICS TESTING TECHNICIAN Respiratory Rate - - Oxygen Saturation - - Inhaled Oxygen Concentration - - Weight 78 kg (172 lb) 07/06/2023 1:52 PM ROBOTICS TESTING TECHNICIAN Height 177.8 cm (5' 10) 07/06/2023 1:52 PM ROBOTICS TESTING TECHNICIAN Body Mass Index 24.68 07/06/2023 1:52 PM ROBOTICS TESTING TECHNICIAN Plan of Treatment Health Maintenance Due Date Last Done Comments DTAP/TDAP/TD VACCINES (1 - Tdap) 1960 PNEUMOCOCCAL VACCINE 50+ YEARS (1 of 1 - PCV) 10/22/18 92 ZOSTER VACCINE (1 of 2) 10/23/1991 RSV VACCINE (60+ or ) (1 - 1-dose 75+ series) 2016 INFLUENZA VACCINE (#1) 2025 Insurance AET[employer] PPO [facility] Care Teams Bricklayer Relationship Specialty Start Date End Date Sreekanth Shea MD [address] [place] [address] PCP - General Family Practice 06/01/18
[2025-01-28 14:03] LABS: Prostate Specific Antigen 0.2 ng/mL (< OR = 4.0)
[2025-02-08 19:08] LABS: Testosterone, Total, LC/MS 285 ng/dL (.)
== END 2025-01-28 11:07 | disposition home or self-care (01) ==
LOC: ANHGOSHLAB 11:07
PROVIDERS: PCP Family Medicine; Visit Provider Urology
DX: C61 Malignant neoplasm of prostate (principal)
CPT/HCPCS: 36415; 84153; 84403

== ENCOUNTER 2025-06-18 09:00 | Outpatient (RCR) | payer MEDICARE, SELFPAY ==
--- NOTE | 2025-04-07 16:28 | OPREHPOC ---
Outpatient Therapy Plan of Care This is a Multidisciplinary Plan of Care that may contain components documented by all disciplines (PT, OT, and ST.) PT Problem 1 PT Problem #1 Knowledge Deficit PT Goal 1 Goal / Goal Update * independent with HEP Target Visit 10 PT Problem 2 PT Problem #2 Pain PT Goal 1 Goal / Goal Update * monitor pain in neck and back with increase strengthening Target Visit 10 PT Problem 3 PT Problem #3 Impaired Range of Motion PT Goal 1 Goal / Goal Update Increase hip flexibility, to improve standing posture and positioning: hamstring length with supine SLR to 50' 1* R 2 * L anterior hip-quad length with prone knee flexion to 115' 3* R 4* L Target Visit 10 PT Problem 4 PT Problem #4 Impaired Strength PT Goal 1 Goal / Goal Update increase strength of trunk and hips, to improve upright, standing posture 1* trunk strength of 4/5 2* bilateral LE's 4+/5 3* pt able to sit with trunk upright for 5 minutes at edge of mat 4* pt able to stand with trunk and hips in correct position x 3 minutes 5* pt ambulate 2 minute walking test distance, with straight path Target Visit 10 PT Problem 5 PT Problem #5 Impaired Functional Mobility PT Goal 1 Goal / Goal Update 1* 2 minute walking test distance of 500' to improve community outing Target Visit 10
--- NOTE | 2025-04-07 16:28 | PTOPEVAL1 ---
Assessment and note entered by Domonique Flores, PT Evaluation Information Assessment Status Evaluation ICD-10 Condition Codes (PT) Cervicalgia M54.2,Difficulty Walking R26.2, Abnormalities of gait and mobility R26.9,Weakness R53.1 Other ICD-10 Condition Codes ( age related physical disability R54 PT) Onset about 1 year Subjective Information have not had any falls in the past 6 months, but weak and unsteady with walking; no energy and get tired; can only walk about 5 minutes then have to sit down due to tired; since had prostate cancer with radiation treatments, more weakness and problems; have PT in the past for neck pain, R shoulder pain , R knee pain/meniscal tear; have not been able to golf; limited lifting due to cardiac issues; at home have a treadmill and stationary bicycle activity: at home with ; goals: be able to stand and hold head upright; better posture of back Reported Pain Level Pain Score 3: Self Report Additional Pain Score Comments pain range in the past week 2-01/26 take tylenol for neck pain does neck exercises from previous PT treatment Assessment PT Clinical Summary Reinaldo has the diagnosis of weakness, decreased mobility and gait pattern, and cervical pain. Reports onset of weakness about 1 year after completing prostate cancer treatments of radiation . He has not had any falls, but unsteady with walking and has not been able to go golfing. Génesis was present during eval and supportive to pt. He is active and can do all of his self care and home tasks, but no energy and weakness reported. With the evaluation: poor standing posture of cervical-thoracic- lumbar and hips; 2 minute walking test distance of 450' with poor pattern-- does not walk a straight path, veers to R/L side; weakness of trunk and hips; tightness of bilateral hamstrings and anterior hip-quad muscles . Skilled PT services are indicated for therapeutic exercises and activities to increase trunk and LE strength, gait and balance skills, with education for HEP and posture/body mechanics. Plan of Care Interventions Hot Pack/Cold Pack,Manual Therapy,Neuro Re- education,Patient/Caregiver Education,Therapeutic Activities,Therapeutic Exercise PT Services Indicated Yes Treatment Frequency and 1-2x/wk for 10 visits Duration These treatments will address the objective and functional deficits as defined above. The patient will be advanced safely and appropriately in order for the patient to progress towards his/her prior level of function. Additional exercises will be introduced and as well as a comprehensive home exercise program upon discharge, if needed, ?to ensure carryover of functional gains achieved in the clinic. This treatment plan has been reviewed and agreement upon by the patient.
--- NOTE | 2025-05-12 15:22 | OPREHPOC ---
Outpatient Therapy Plan of Care This is a Multidisciplinary Plan of Care that may contain components documented by all disciplines (PT, OT, and ST.) PT Problem 1 PT Problem #1 Knowledge Deficit PT Goal 1 Goal / Goal Update * independent with HEP 05-12-25 progress goal met continue to progress HEP and education Target Visit 17 PT Problem 2 PT Problem #2 Pain PT Goal 1 Goal / Goal Update * monitor pain in neck and back with increase strengthening 05-12-25 progress goal met Target Visit 10 Progress Met PT Goal 2 Goal / Goal Update 05-12-25 progress NEW GOAL: 1* pain rating neck pain 6/10 at worst, to improve posture and position Target Visit 17 PT Problem 3 PT Problem #3 Impaired Range of Motion PT Goal 1 Goal / Goal Update Increase hip flexibility, to improve standing posture and positioning: hamstring length with supine SLR to 50' 1* R 2 * L anterior hip-quad length with prone knee flexion to 115' 3* R 4* L 05-12-25 progress goals 1 & 2 met continue towards goals 3 & 4 Target Visit 17 PT Problem 4 PT Problem #4 Impaired Strength PT Goal 1 Goal / Goal Update increase strength of trunk and hips, to improve upright, standing posture 1* trunk strength of 4/5 2* bilateral LE's 4+/5 3* pt able to sit with trunk upright for 5 minutes at edge of mat 4* pt able to stand with trunk and hips in correct position x 3 minutes 5* pt ambulate 2 minute walking test distance, with straight path 05-12-25 progress goals 1,3,4 met continue towards other goals Target Visit 17 PT Problem 5 PT Problem #5 Impaired Functional Mobility PT Goal 1 Goal / Goal Update 1* 2 minute walking test distance of 500' to improve community outing 05-12-25 progress goal not met continue towards goal Target Visit 17
--- NOTE | 2025-05-12 15:23 | PTOPPROG ---
Assessment and note entered by Domonique Flores, PT Assessment Status Progress ICD-10 Condition Codes (PT) Cervicalgia M54.2,Difficulty Walking R26.2, Abnormalities of gait and mobility R26.9,Weakness R53.1 Other ICD-10 Condition Codes ( age related physical disability R54 PT) Onset about 1 year Subjective Information doing the exercises at home; cramps in legs are less; working on sitting up straighter & use the neck brace for support with eating; able to play 9 holes of golf recently; have not golfed since last summer; walk with the cane sometimes; want to continue therapy to get stronger and move better; PAIN: L > R cervical 2-01/26; take over the counter meds, doing the home stretching exercises also have R knee pain Assessment PT Clinical Summary Reinaldo has received 9 PT sessions. With today's assessment: continues to have pain in neck -01/26; increase flexibility of LE's: hamstring to supine SLR 60' bilateral and anterior hip/quad length with prone knee flexion R 95' and L 100'; improved trunk strength and posture with sitting and standing; 2 minute walking test distance is the same at 450'; gait pattern improved with less lateral trunk lean, but continues to have small base of support with occasional R leg cross midline of body; LE functional scale self rating of 59% limitation in activity level; education for HEP and posture. The goals were partially met. Continue PT treatment. Use of modalities PRN for neck pain. Plan of Care Interventions Hot Pack/Cold Pack,Manual Therapy,Neuro Re- education,Therapeutic Activities,Therapeutic Exercise PT Services Indicated Yes Treatment Frequency and 1-2x/wk for 8 visits Duration These treatments will address the objective and functional deficits as defined above. The patient will be advanced safely and appropriately in order for the patient to progress towards his/her prior level of function. Additional exercises will be introduced and as well as a comprehensive home exercise program upon discharge, if needed, ?to ensure carryover of functional gains achieved in the clinic. This treatment plan has been reviewed and agreement upon by the patient.
--- NOTE | 2025-06-18 09:52 | OPREHPOC ---
Outpatient Therapy Plan of Care This is a Multidisciplinary Plan of Care that may contain components documented by all disciplines (PT, OT, and ST.) PT Problem 1 PT Problem #1 Knowledge Deficit PT Goal 1 Goal / Goal Update * independent with HEP 05-12-25 progress goal met continue to progress HEP and education 06-18-25 d/c goal met Target Visit 17 Progress Met PT Problem 2 PT Problem #2 Pain PT Goal 1 Goal / Goal Update * monitor pain in neck and back with increase strengthening 05-12-25 progress goal met 06-18-25 d/c goal met Target Visit 10 Progress Met PT Goal 2 Goal / Goal Update 05-12-25 progress NEW GOAL: 1* pain rating neck pain 6/10 at worst, to improve posture and position Target Visit 17 PT Problem 3 PT Problem #3 Impaired Range of Motion PT Goal 1 Goal / Goal Update Increase hip flexibility, to improve standing posture and positioning: hamstring length with supine SLR to 50' 1* R 2 * L anterior hip-quad length with prone knee flexion to 115' 3* R 4* L 06-18-25 d/c goal not met: R 100'/ L 105' 05-12-25 progress goals 1 & 2 met continue towards goals 3 & 4 Target Visit 17 Progress Partially Met PT Problem 4 PT Problem #4 Impaired Strength PT Goal 1 Goal / Goal Update increase strength of trunk and hips, to improve upright, standing posture 1* trunk strength of 4/5 2* bilateral LE's 4+/5 3* pt able to sit with trunk upright for 5 minutes at edge of mat 4* pt able to stand with trunk and hips in correct position x 3 minutes 5* pt ambulate 2 minute walking test distance, with straight path 05-12-25 progress goals 1,3,4 met continue towards other goals 06-18-25 d/c goals 1,3,4 Target Visit 17 Progress Partially Met PT Problem 5 PT Problem #5 Impaired Functional Mobility PT Goal 1 Goal / Goal Update 1* 2 minute walking test distance of 500' to improve community outing 05-12-25 progress goal not met continue towards goal 06-18-25 d/c goal not met, 430' Target Visit 17
--- NOTE | 2025-06-18 09:52 | PTOPDC ---
Assessment and note entered by Domonique Flores, PT Assessment Status Discharge ICD-10 Condition Codes (PT) Cervicalgia M54.2,Difficulty Walking R26.2, Abnormalities of gait and mobility R26.9,Weakness R53.1 Other ICD-10 Condition Codes ( age related physical disability R54 PT) Onset about 1 year Subjective Information feel like I have mobility of my neck and straightening up my torso; have some additional energy and strength; been doing the exercises, but R knee still giving me pain; use the cane only for long distances; Reported Pain Level Pain Score 0: Self Report Additional Pain Score Comments pain range in the past week 0-5/10; increase pain: cervical rotation to L; when wake up in the morning problems with sleeping, getting neck comfortable and keeping CPAP from leaking; Assessment PT Clinical Summary Reinaldo has received a total of 17 PT sessions. With today's assessment: pain rating of neck from 0-5/10 in the past week; self assessment with LE functional scale 33% limitation in activity; 2 minute walking test distance of 430'; gait pattern of lateral motion of trunk with decreased control of hips and trunk; gross strength of R and L hip 4 to 4-/5; cervical rotation to R 70'/ L 45'- to L increase neck pain; improved posture awareness and self correction of neck and trunk position; education for HEP and posture, body mechanics. The goals were partially met. Discharge PT. He is continue with the HEP and increase activity as tolerated- with his home treadmill and stationary bicycle. Plan of Care PT Services Indicated No
== END 2025-06-18 11:22 | disposition home or self-care (01) ==
LOC: ANHPT 09:00
PROVIDERS: PCP Family Medicine; Visit Provider Family Medicine
DX: R54 Age-related physical debility (principal)
CPT/HCPCS: 97110; 97112; 97140; 97162; 97530